=== PATIENT | female | born 1940 | race Caucasian/White ===

== ENCOUNTER 2017-03-18 12:14 | Inpatient (IN) | payer MEDICARE, BC, SELFPAY ==
[2017-03-18 12:20] VITALS: BP 154/80; PULSE 88; RESP 19; TEMP 36.4; O2SAT 95; BMI 26.4
[2017-03-18] MEDS: oxyCODONE 5 MG Tablet PO ×3 (14:05→23:48)
--- NOTE | 2017-03-18 14:08 | PCM.HP.COS ---
History of Present Illness Date of Admission: 03/18/17 Chief Complaint: Laminectomy The patient is a 77 year old right-handed female who was admitted to the rehab unit for rehabilitation after a Laminectomy on 03/14/17 at [facility] by Dr. Oscar Rosas, Surgery was uncomplicated. She has a history of Lumbar spondylolisthesis, spinal stenosis, HTN, HLD, GERD, Hiatal hernia, Arthritis, and Osteopenia. This was an elective surgery, the patient has had increasing amount of pain, over the last few months, difficulty sleeping 2/2 pain and stress incontinence and shortness of breath when ambulate because of the jarring causing pain. She lives with her in a two story house. the second floor is not completed, and they live on the first floor, they have 1 step to get into the house from the garage and 2 steps to get in through the front door. She was previously completely functionally independent and is admitted to the rehab unit in order to restore her previous level of functional independence. Was on a baby ASA prior to the surgery, and has been using a cane to ambulate the last few months. Past Medical History Allergies ciprofloxacin [From Cipro] Allergy (Verified 01/09/17 14:22) Unknown ciprofloxacin HCl [From Cipro] Allergy (Verified 01/09/17 14:22) Unknown codeine Adverse Reaction (Verified 01/09/17 14:22) Other Home Medications: Ambulatory Orders Medication Instructions Recorded Alendronate Sodium [Fosamax] 70 mg PO QWEEK 01/09/17 Atenolol 50 mg PO DAILY 01/09/17 Calcium Carbonate/Vitamin D3 1 each PO DAILY 01/09/17 [Calcium 600-Vit D3 200 Tablet] Lisinopril [Zestril] 10 mg PO DAILY 01/09/17 Lovastatin [Mevacor] 40 mg PO DAILY 01/09/17 Omeprazole 40 mg PO DAILY 01/09/17 Vit A/Vit C/Vit E/Zinc/Copper 1 each PO DAILY 01/09/17 [Preservision Areds Softgel] Cholecalciferol (VIT D3) [Vitamin 1,000 unit PO BID 03/18/17 D] Naloxegol Oxalate [Movantik] 25 mg PO QODAY 03/18/17 Oxycodone [Oxyir] 5 mg PO Q6H PRN PRN 03/18/17 Surgical History: total knee arthroplasty - Left knee, - - Tubal Ligation Psychiatric History: No pertinent psych hx 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 Lives: Spouse/ Significant Other Smoking Status: Never smoker Tobacco Use: Non-smoker Alcohol: Occasional Drugs: None Review of Systems Constitutional: Denies: Chills, Fever, Weight Change HEENT: Denies: Head Aches, Sinus Congestion, Sinus Drainage Cardiovascular: Denies: Chest Pain, Palpitations Respiratory: Denies: Cough, Shortness of breath at rest, Sputum production Gastrointestinal: Denies: Abdominal Pain, Nausea, Vomiting Genitourinary: Denies: Dysuria Musculoskeletal: Denies: Joint Pain, Joint Tenderness Skin: Denies: Rash, Wounds Neurological: Denies: Numbness, Tingling, Focal weakness Psychiatric: Denies: Anxiety, Depression, Homicidal Ideations, Suicidal Ideations Hematologic/ Lymphatic: Denies: Easy Bruising, Easy Bleeding VTE Information - Inpt Only VTE Present on Admission: No VTE Mechan Device Prophylaxis: SCD's VTE Pharm Prophylaxis ordered?: Yes Patient Problems: Active and Suspected Problems Hyperlipidemia (Acute) Back pain (Acute) Essential hypertension, benign (Acute) S/P laminectomy (Acute) - Physical Exam General: Alert, Oriented x3, Cooperative HEENT: Atraumatic, PERRLA, EOMI, Normocephalic Neck: Supple, No JVD, Negative Carotid Bruits Lungs: Clear to auscultation, Normal air movement Cardiovascular: Regular rate, No murmurs Abdomen: Bowel Sounds Present, Soft, Non Tender Extremities: No edema, Capillary Refill Less than 3 Seconds Skin: No rashes, No breakdown Musculoskeletal: No Tenderness to Palpation of Joints or Extremities Neurological: Cranial nerves II-XII grossly intact Psych/Mental Status: Normal Affect, Appropriate Vital Signs Temp Pulse Resp BP Pulse Ox 97.5 F L 88 19 H 154/80 H 95 03/18/17 12:20 03/18/17 12:20 03/18/17 12:20 03/18/17 12:20 03/18/17 12:20 Oxygen Delivery Method Room Air Weight: 61.235 kg Body Mass Index (BMI) 26.4 Active Medications Alendronate Sodium (Fosamax) 70 mg PO QWEEK [facility] Atenolol (Tenormin (Beta Kailee)) 50 mg PO DAILY [facility] Atorvastatin Calcium (Lipitor) 10 mg PO DAILY@2200 [facility] Bisacodyl (Dulcolax) 10 mg RECTAL .PRN X 1 PRN PRN Reason: Constipation Calcium/Vitamin D (Os-[place] 500mg + D) 1 tablet PO DAILYCM [facility] Cholecalciferol (Vitamin D) 1,000 unit PO BIDCM [facility] Lisinopril (Zestril) 10 mg PO DAILY [facility] Magnesium Hydroxide (Milk Of Magnesia) 30 ml PO .PRN X 1 PRN PRN Reason: Constipation Multivitamins/Minerals (Ocuvite) 1 tablet PO DAILYCM [facility] Non-Formulary Medication (Naloxegol Oxalate) 25 mg PO QODAY [facility] Oxycodone HCl (Oxyir) 5 mg PO Q4H PRN PRN PRN Reason: MODERATE PAIN (4-5/10) Last Admin: 03/18/17 14:05 Dose: 5 mg Pantoprazole Sodium (Protonix) 40 mg PO DAILY [facility] Polyethylene Glycol (Miralax) 17 gm PO DAILY [facility] Senna/Docusate Sodium (Senokot-S, Hillary-Colace) 2 tablet PO BID [facility] Assessment/Plan Active and Suspected Problems Hyperlipidemia (Acute) Back pain (Acute) Essential hypertension, benign (Acute) S/P laminectomy (Acute) Debility status post laminectomy bone graft lumbar spine. Goal of rehab is religion of prior level of functional independence. Plan: - Physical therapy for gait and balance - Occupational Therapy for ADLs - As needed analgesics - Bowel protocol - DVT prophylaxis: - HLD - continue home dose of statin - HTN - stable => continue home medications - Weight bearing status => WBAT, Lumbar brace on at all time when out of bed - Constipation - Miralax BID, and MOM in addition to Bowel regimen - Pre diabetes -> diet controlled, check fasting BS x 3days.
--- NOTE | 2017-03-18 14:11 | NURSING ---
Patient and aware of patient needing to use the call cha for all assistance and that she is fall risk and verbalized understanding.
--- NOTE | 2017-03-18 14:26 | HP.PCM.COS_ITS ---
History of Present Illness Date of Admission: 03/18/17 Chief Complaint: Laminectomy The patient is a 77 year old right-handed female who was admitted to the rehab unit for rehabilitation after a Laminectomy on 03/14/[address] [facility] by Dr. Oscar Rosas, Surgery was uncomplicated. She has a history of Lumbar spondylolisthesis, spinal stenosis, HTN, HLD, GERD, Hiatal hernia, Arthritis, and Osteopenia. This was an elective surgery, the patient has had increasing amount of pain, over the last few months, difficulty sleeping 2/2 pain and stress incontinence and shortness of breath when ambulate because of the jarring causing pain. She lives with her in a two story house. the second floor is not completed, and they live on the first floor, they have 1 step to get into the house from the garage and 2 steps to get in through the front door. She was previously completely functionally independent and is admitted to the rehab unit in order to restore her previous level of functional independence. Was on a baby ASA prior to the surgery, and has been using a cane to ambulate the last few months. Past Medical History Allergies ciprofloxacin [From Cipro] Allergy (Verified 01/09/17 14:22) Unknown ciprofloxacin HCl [From Cipro] Allergy (Verified 01/09/17 14:22) Unknown codeine Adverse Reaction (Verified 01/09/17 14:22) Other Home Medications: Ambulatory Orders Medication Instructions Recorded Alendronate Sodium [Fosamax] 70 mg PO QWEEK 01/09/17 Atenolol 50 mg PO DAILY 01/09/17 Calcium Carbonate/Vitamin D3 1 each PO DAILY 01/09/17 [Calcium 600-Vit D3 200 Tablet] Lisinopril [Zestril] 10 mg PO DAILY 01/09/17 Lovastatin [Mevacor] 40 mg PO DAILY 01/09/17 Omeprazole 40 mg PO DAILY 01/09/17 Vit A/Vit C/Vit E/Zinc/Copper 1 each PO DAILY 01/09/17 [Preservision Areds Softgel] Cholecalciferol (VIT D3) [Vitamin 1,000 unit PO BID 03/18/17 D] Naloxegol Oxalate [Movantik] 25 mg PO QODAY 03/18/17 Oxycodone [Oxyir] 5 mg PO Q6H PRN PRN 03/18/17 Surgical History: total knee arthroplasty - Left knee, - - Tubal Ligation Psychiatric History: No pertinent psych 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 Lives: Spouse/ Significant Other Smoking Status: Never smoker Tobacco Use: Non-smoker Alcohol: Occasional Drugs: None Review of Systems Constitutional: Denies: Chills, Fever, Weight Change HEENT: Denies: Head Aches, Sinus Congestion, Sinus Drainage Cardiovascular: Denies: Chest Pain, Palpitations Respiratory: Denies: Cough, Shortness of breath at rest, Sputum production Gastrointestinal: Denies: Abdominal Pain, Nausea, Vomiting Genitourinary: Denies: Dysuria Musculoskeletal: Denies: Joint Pain, Joint Tenderness Skin: Denies: Rash, Wounds Neurological: Denies: Numbness, Tingling, Focal weakness Psychiatric: Denies: Anxiety, Depression, Homicidal Ideations, Suicidal Ideations Hematologic/ Lymphatic: Denies: Easy Bruising, Easy Bleeding VTE Information - Inpt Only VTE Present on Admission: No VTE Mechan Device Prophylaxis: SCD's VTE Pharm Prophylaxis ordered?: Yes Patient Problems: Active and Suspected Problems Hyperlipidemia (Acute) Back pain (Acute) Essential hypertension, benign (Acute) S/P laminectomy (Acute) - Physical Exam General: Alert, Oriented x3, Cooperative HEENT: Atraumatic, PERRLA, EOMI, Normocephalic Neck: Supple, No JVD, Negative Carotid Bruits Lungs: Clear to auscultation, Normal air movement Cardiovascular: Regular rate, No murmurs Abdomen: Bowel Sounds Present, Soft, Non Tender Extremities: No edema, Capillary Refill Less than 3 Seconds Skin: No rashes, No breakdown Musculoskeletal: No Tenderness to Palpation of Joints or Extremities Neurological: Cranial nerves II-XII grossly intact Psych/Mental Status: Normal Affect, Appropriate Vital Signs Temp Pulse Resp BP Pulse Ox 97.5 F L 88 19 H 154/80 H 95 03/18/17 12:20 03/18/17 12:20 03/18/17 12:20 03/18/17 12:20 03/18/17 12:20 Oxygen Delivery Method Room Air Weight: 61.235 kg Body Mass Index (BMI) 26.4 Active Medications Alendronate Sodium (Fosamax) 70 mg PO QWEEK [facility]ASE Atenolol (Tenormin (Beta Kailee)) 50 mg PO DAILY [facility] Atorvastatin Calcium (Lipitor) 10 mg PO DAILY@2200 [facility] Bisacodyl (Dulcolax) 10 mg RECTAL .PRN X 1 PRN PRN Reason: Constipation Calcium/Vitamin D (Os-[place] 500mg + D) 1 tablet PO DAILYCM [facility] Cholecalciferol (Vitamin D) 1,000 unit PO BIDCM [facility] Lisinopril (Zestril) 10 mg PO DAILY [facility] Magnesium Hydroxide (Milk Of Magnesia) 30 ml PO .PRN X 1 PRN PRN Reason: Constipation Multivitamins/Minerals (Ocuvite) 1 tablet PO DAILYCM [facility] Non-Formulary Medication (Naloxegol Oxalate) 25 mg PO QODAY [facility] Oxycodone HCl (Oxyir) 5 mg PO Q4H PRN PRN PRN Reason: MODERATE PAIN (4-5/10) Last Admin: 03/18/17 14:05 Dose: 5 mg Pantoprazole Sodium (Protonix) 40 mg PO DAILY [facility] Polyethylene Glycol (Miralax) 17 gm PO DAILY [facility] Senna/Docusate Sodium (Senokot-S, Hillary-Colace) 2 tablet PO BID [facility] Assessment/Plan Active and Suspected Problems Hyperlipidemia (Acute) Back pain (Acute) Essential hypertension, benign (Acute) S/P laminectomy (Acute) Debility status post laminectomy bone graft lumbar spine. Goal of rehab is worship of prior level of functional independence. Plan: - Physical therapy for gait and balance - Occupational Therapy for ADLs - As needed analgesics - Bowel protocol - DVT prophylaxis: - HLD - continue home dose of statin - HTN - stable => continue home medications - Weight bearing status => WBAT, Lumbar brace on at all time when out of bed - Constipation - Miralax BID, and MOM in addition to Bowel regimen - Pre diabetes -> diet controlled, check fasting BS x 3days.
--- NOTE | 2017-03-18 14:55 | PCM.PROGNOTE ---
Patient Problems: Active and Suspected Problems S/P laminectomy (Acute) Essential hypertension, benign (Acute) Back pain (Acute) Hyperlipidemia (Acute) Subjective: Patient is a 77 years old female who was admitted to on 03/18/17 after she had laminectomy of lumbar spine on 03/14/16 at [facility] by Dr. Dr. Oscar Rosas. She was admitted to to continue rehabilitation. She is complaining of persisting pain in the lumbar area with reasonable pain control with current regimen so far. She is also having constipation, has not had bowel movements since the time of surgery. - Physical Exam General: Alert, Oriented x3, Cooperative HEENT: Atraumatic, PERRLA, EOMI, Normocephalic Oral: Moist Mucosa, No Gingival or Mucosal Lesions/ Ulcerations Neck: Supple, No JVD Lungs: Clear to auscultation, Normal air movement, No rhonchi, No wheeze, No rales Cardiovascular: Regular rate, Regular Rhythm, Normal S1, Normal S2, No murmurs Abdomen: Bowel Sounds Present, Soft, Non Tender, Non-Distended, No Hepato-splenomegaly Extremities: No clubbing, No cyanosis, No edema Skin: No rashes, No breakdown Musculoskeletal: No Tenderness to Palpation of Joints or Extremities, No Muscle Wasting Lymphatic: No Cervical, Supraclavicular, or Inguinal Adenopathy Neurological: Cranial nerves II-XII grossly intact, Sensory exam intact to light touch and pain Psych/Mental Status: Normal Affect, Appropriate, Anxious Vital Signs Temp Pulse Resp BP Pulse Ox 97.5 F L 88 19 H 154/80 H 95 03/18/17 12:20 03/18/17 12:20 03/18/17 12:20 03/18/17 12:20 03/18/17 12:20 Oxygen Delivery Method Room Air Weight: 135 lb Body Mass Index (BMI) 26.4 Active Medications Alendronate Sodium (Fosamax) 70 mg PO QWEEK [facility] Atenolol (Tenormin (Beta Kailee)) 50 mg PO DAILY [facility] Atorvastatin Calcium (Lipitor) 10 mg PO DAILY@2200 [facility] Bisacodyl (Dulcolax) 10 mg RECTAL .PRN X 1 PRN PRN Reason: Constipation Calcium/Vitamin D (Os-[place] 500mg + D) 1 tablet PO DAILYCM [facility] Cholecalciferol ([facility]itamin D) [facility] Lisinopril (Zestril) 10 mg PO DAILY [facility] Magnesium Hydroxide (Milk Of Magnesia) 30 ml PO .PRN X 1 PRN PRN Reason: Constipation Multivitamins/Minerals (Ocuvite) 1 tablet PO DAILYCM [facility] Non-Formulary Medication (Naloxegol Oxalate) 25 mg PO QODAY [facility] Oxycodone HCl (Oxyir) 5 mg PO Q4H PRN PRN PRN Reason: MODERATE PAIN (4-5/10) Last Admin: 03/18/17 14:05 Dose: 5 mg Pantoprazole Sodium (Protonix) 40 mg PO DAILY [facility] Polyethylene Glycol (Miralax) 17 gm PO DAILY [facility] Senna/Docusate Sodium (Senokot-S, Hillary-Colace) 2 tablet PO BID [facility] Assessment/Plan Active and Suspected Problems S/P laminectomy (Acute) Essential hypertension, benign (Acute) Back pain (Acute) Hyperlipidemia (Acute) Patient is a 77 years old female who was admitted to on 03/18/17 after she had laminectomy of lumbar spine on 03/14/16 at [facility] by Dr. Dr. Oscar Rosas. She was admitted to to continue rehabilitation. She is complaining of persisting pain in the lumbar area with reasonable pain control with current regimen so far. She is also having constipation, has not had bowel movements since the time of surgery. #1 S/P laminectomy bone graft lumbar spine. Surgery was on 03/14/16. Continue rehab. #2 Essential hypertension. Blood pressure is adequate. Continue current medications. #3 Hyperlipidemia. #4 Constipation. Continue current regimen with prn laxative. Code Visit Inpatient E&M: 48616 Subs Hosp L2
--- NOTE | 2017-03-18 15:02 | PN_ITS ---
Patient Problems: Active and Suspected Problems S/P laminectomy (Acute) Essential hypertension, benign (Acute) Back pain (Acute) Hyperlipidemia (Acute) Subjective: Patient is a 77 years old female who was admitted to on 03/18/17 after she had laminectomy of lumbar spine on 03/14/16 at [facility] by Dr. Dr. Oscar Rosas. She was admitted to to continue rehabilitation. She is complaining of persisting pain in the lumbar area with reasonable pain control with current regimen so far. She is also having constipation, has not had bowel movements since the time of surgery. - Physical Exam General: Alert, Oriented x3, Cooperative HEENT: Atraumatic, PERRLA, EOMI, Normocephalic Oral: Moist Mucosa, No Gingival or Mucosal Lesions/ Ulcerations Neck: Supple, No JVD Lungs: Clear to auscultation, Normal air movement, No rhonchi, No wheeze, No rales Cardiovascular: Regular rate, Regular Rhythm, Normal S1, Normal S2, No murmurs Abdomen: Bowel Sounds Present, Soft, Non Tender, Non-Distended, No Hepato- splenomegaly Extremities: No clubbing, No cyanosis, No edema Skin: No rashes, No breakdown Musculoskeletal: No Tenderness to Palpation of Joints or Extremities, No Muscle Wasting Lymphatic: No Cervical, Supraclavicular, or Inguinal Adenopathy Neurological: Cranial nerves II-XII grossly intact, Sensory exam intact to light touch and pain Psych/Mental Status: Normal Affect, Appropriate, Anxious Vital Signs Temp Pulse Resp BP Pulse Ox 97.5 F L 88 19 H 154/80 H 95 03/18/17 12:20 03/18/17 12:20 03/18/17 12:20 03/18/17 12:20 03/18/17 12:20 Oxygen Delivery Method Room Air Weight: 135 lb Body Mass Index (BMI) 26.4 Active Medications Alendronate Sodium (Fosamax) 70 mg PO QWEEK [facility] Atenolol (Tenormin (Beta Kailee)) 50 mg PO DAILY [facility] Atorvastatin Calcium (Lipitor) 10 mg PO DAILY@2200 [facility] Bisacodyl (Dulcolax) 10 mg RECTAL .PRN X 1 PRN PRN Reason: Constipation Calcium/Vitamin D (Os-[place] 500mg + D) 1 tablet PO DAILYCM [facility] Cholecalciferol (Vitamin D) [facility] Lisinopril (Zestril) 10 mg PO DAILY [facility] Magnesium Hydroxide (Milk Of Magnesia) 30 ml PO .PRN X 1 PRN PRN Reason: Constipation Multivitamins/Minerals (Ocuvite) 1 tablet PO DAILYCM [facility] Non-Formulary Medication (Naloxegol Oxalate) 25 mg PO QODAY [facility] Oxycodone HCl (Oxyir) 5 mg PO Q4H PRN PRN PRN Reason: MODERATE PAIN (4-5/10) Last Admin: 03/18/17 14:05 Dose: 5 mg Pantoprazole Sodium (Protonix) 40 mg PO DAILY [facility] Polyethylene Glycol (Miralax) 17 gm PO DAILY [facility] Senna/Docusate Sodium (Senokot-S, Hillary-Colace) 2 tablet PO BID [facility] Assessment/Plan Active and Suspected Problems S/P laminectomy (Acute) Essential hypertension, benign (Acute) Back pain (Acute) Hyperlipidemia (Acute) Patient is a 77 years old female who was admitted to on 03/18/17 after she had laminectomy of lumbar spine on 03/14/16 at [facility] by Dr. Dr. Oscar Rosas. She was admitted to to continue rehabilitation. She is complaining of persisting pain in the lumbar area with reasonable pain control with current regimen so far. She is also having constipation, has not had bowel movements since the time of surgery. #1 S/P laminectomy bone graft lumbar spine. Surgery was on 03/14/16. Continue rehab. #2 Essential hypertension. Blood pressure is adequate. Continue current medications. #3 Hyperlipidemia. #4 Constipation. Continue current regimen with prn laxative. Code Visit Inpatient E&M: 57793 Subs Hosp L2
[2017-03-18 15:15] VITALS: O2SAT 95
--- NOTE | 2017-03-18 16:20 | PCM.RU.PYE ---
Admission Information Status Changes from Prescreening?: No changes Identified Actual Problem List:: Falls, Mobility Impaired, Self Care Deficit, BP, Hypertension Potential Problem List:: DVT, Bleeding, Infection, UTI, Aspiration, Falls, Skin Integrity, Depression Risk of Complications DVT: LMWH, NOREEN Hose, Sequential Compression Device Bleeding: Monitor Lab Values, Nursing to Teach Precautions for anti-coagulation therapy., Wound, if applicable, to be assessed every shift., Stroke patients assessed for lethargy or change in status. Infection: Clinical Staff to Monitor for S/S of infection:, S/S of infection include fever, redness, warmth, etc. Urinary Tract Infection: Monitor for frequency, burning, discomfort, or incontinence., Nursing will obtain urine sample for urinalysis and C&S when ordered. Aspiration: Clinical staff will monitor for coughing, drooling, congestion., Speech will evaluate swallowing and dsyphasia., Nursing will monitor patient swallowing during meals. Falls: Patient will be evaluated for Fall Precautions, Patient will be placed on Fall Precautions as indicated per protocol. Skin Breakdown: Nursing will assess skin daily using assessment tool., Nursing will place on Skin Breakdown Precautions as indicated. Pain: Clinical staff will assess patient's pain level per protocol., Medications will be given, if needed, and the pain level reassessed., Other methods: Massage, distraction, decrease stimulus, etc. used PRN. Plan of Care Patient requires physician specializing in physical medicine and rehab oversight to provide close medical supervision of rehab issues including: Pain Management, Sleep Problems, Bowel and Bladder, Medical and co-morbidity Management, DVT prophylaxis, Rehabilitation Leadership, Coordination of treatment team Patient needs Physical Therapy: For a minimum of 1 hour, At least 5 out of 7 days Patient needs Physical Therapy to improve:: Mobility, Mobility, Mobility, Strengthening, Transfers, Stretching, ROM, Endurance, Stairs, Gait, Balance Patient needs Occupational Therapy: For a minimum of 1 hour, At least 5 out of 7 days Patient needs Occupational Therapy to improve ADL's incl.: Eating, Grooming, Bathing, Dressing, Toileting, Toilet transfers, Community Reintegration, Higher functioning activities, Household tasks, Adaptive Equipment, Splinting, Other activities as determined Patient requires 24/ Rehabilitation Nursing for: Pain Issues, Identifying and preventing risk factors, Monitoring and reporting current medical conditions, Assisting with ambulation, transfer, and all ADL's, Teaching patients about disease process and medications, Family teaching, Providing safe environment, Bowel and Bladder Issues, Skin integrity, Medication Management Patient needs Multiple Needle Stitcher/ Case Management for: Discharge Planning, Arranging Home Equipment or Services, Family Interventions Patient needs Dietary and Nutrition Services for: Adequate Nutrition, Nutritional Supplements, Nutritional Education Goals Patient will remain: free from falls, or injury at time of discharge. Patient will perform bed mobility at: MOD I level of assist. Patient will complete transfers from bed to chair at: MOD I level of assist. Patient will ambulate: 100 feet, with MOD I assist, with LRD Patient will complete upper body dressing at: MOD I level of assist. Patient will complete lower body dressing at: MOD I level of assist. Patient will complete toileting at: MOD I level of assist. Patient will perform bathing at: MOD I level of assist. Patient will complete grooming at: MOD I level of assist. Patient will complete home management skills at: MOD I level of assist. Patient will achieve: 12 stairs, at MOD I assist Patient will have pain level of: of 3 or less Patient's skin will: remain intact, free from infection. Patient will receive: adequate nutrition. Discharge Planning Pt Prognosis for Sig. Practical Improv. w/in Reasonable Time: Good - 1 Estimated Length of stay (days): 14 Anticipated D/C Destination: Home Was Preadmission Assessment Accurate?: Yes
[2017-03-18] MEDS: Polyethylene Glycol 3350 17 GM PACKET PO (17:31)
[2017-03-18 19:34] VITALS: BP 125/60; PULSE 88; RESP 16; TEMP 36.8; O2SAT 95
[2017-03-18] MEDS: Senna/Docusate Sodium 1 Tablet 2 TABLET PO (22:47)
[2017-03-18] MEDS: Magnesium Hydroxide 30 ML UDC PO (22:48)
[2017-03-18] MEDS: Atorvastatin Calcium 10 MG Tablet PO (22:48)
[2017-03-19] MEDS: oxyCODONE 5 MG Tablet PO ×4 (03:56→21:06)
[2017-03-19 07:56] LABS: Hematocrit 31.5 % (37-47); Hemoglobin 10.3 g/dl (12.0-15.0); Mean Corp Hgb Conc 32.7 g/gl (32-36); Mean Corpuscular Hgb 30.2 pg (27.0-32.0); Mean Corpuscular Volume 92.4 fL (81-99); Mean Platelet Vol. 9.6 fl (6.2-12.0); Platelet Count 232 K/mm3 (150-450); RBC Distribution Width CV 12.1 % (11.6-14.6); RBC Distribution Width SD 39.3 fl (35.1-43.9); Red Blood Count 3.41 M/mm3 (4.2-5.4)
[2017-03-19 07:59] LABS: Scan Indicated on CBC? Y/N NO
[2017-03-19] MEDS: Calcium Carb/Vitamin D 1 TABLET Tablet PO (08:03)
[2017-03-19] MEDS: Polyethylene Glycol 3350 17 GM PACKET PO (08:03)
[2017-03-19] MEDS: Senna/Docusate Sodium 1 Tablet 2 TABLET PO ×2 (08:03→20:51)
[2017-03-19] MEDS: Pantoprazole Sodium 40 MG Tablet PO (08:03)
[2017-03-19 08:10] LABS: Anion Gap 10 (5-15); BUN 23 mg/dL (7-18); BUN/Creat Ratio 30.1 RATIO (10-20); Calcium,Total 10.1 mg/dL (8.5-10.1); Chloride 103 mmol/L (98-107); Creatinine, Serum 0.76 mg/dL (0.55-1.02); EST Glomerular Filtration Rate 78 mL/min (>60); Est Glom Filt Rate - Afr Amer 95 mL/min (>60); Estimated Creatinine Clearance 33.84 ml/min; Glucose 140 mg/dL (70-110); Magnesium 2.1 mg/dL (1.6-2.6); Phosphorus 1.5 mg/dL (2.5-4.9); Potassium 4.3 mmol/L (3.5-5.1); Sodium Level 138 mmol/L (136-145)
[2017-03-19] MEDS: Lisinopril 10 MG Tablet PO (09:06)
[2017-03-19] MEDS: Atenolol 50 MG Tablet PO (09:06)
[2017-03-19 09:57] VITALS: BP 111/56; PULSE 71; RESP 16; TEMP 36.8; O2SAT 97
--- NOTE | 2017-03-19 10:12 | PCM.PN.NEU ---
Patient Problems: Active and Suspected Problems Hyperlipidemia (Acute) Back pain (Acute) Essential hypertension, benign (Acute) S/P laminectomy (Acute) Subjective: Patient seen and examined. Continues to have persistent Post-op pain, started on low dose Fentanyl patch. Tolerating therapy. Denies any shortness of breath or chest pains. - Physical Exam General: Alert, Oriented x3, Cooperative HEENT: Atraumatic, PERRLA, EOMI, Normocephalic Neck: Supple, No JVD, Negative Carotid Bruits Lungs: Clear to auscultation, Normal air movement Cardiovascular: Regular rate, No murmurs Abdomen: Bowel Sounds Present, Soft, Non Tender Extremities: No edema, Capillary Refill Less than 3 Seconds Skin: No rashes, No breakdown Musculoskeletal: No Tenderness to Palpation of Joints or Extremities Neurological: Cranial nerves II-XII grossly intact Psych/Mental Status: Normal Affect, Appropriate Vital Signs Temp Pulse Resp BP Pulse Ox 98.3 F 71 16 111/56 L 97 03/19/17 09:57 03/19/17 09:57 03/19/17 09:57 03/19/17 09:57 03/19/17 09:57 Oxygen Delivery Method Room Air Weight: 61.235 kg Body Mass Index (BMI) 26.4 Intake and Output for Last 24 Hours 03/17/17 03/18/17 03/19/17 23:59 23:59 23:59 Intake Total 120 / 120 120 / 120 Output Total 825 / 825 350 / 350 Balance -705 / -705 -230 / -230 Laboratory Tests Past 24 Hrs 03/19/17 03/19/17 07:45 07:45 WBC 8.0 RBC 3.41 L Hgb 10.3 L Hct 31.5 L MCV 92.4 MCH 30.2 MCHC 32.7 RDW 12.1 RDW Differential 39.3 Plt Count 232 MPV 9.6 Sodium 138 Potassium 4.3 Chloride 103 Carbon Dioxide 25.0 Anion Gap 10 BUN 23 H Creatinine 0.76 Estim Creat Clear Calc 33.84 Est GFR (MDRD) Af Amer 95 Est GFR (MDRD) Non-Af 78 BUN/Creatinine Ratio 30.1 H Glucose 140 H Calcium 10.1 Phosphorus 1.5 L Magnesium 2.1 Active Medications Alendronate Sodium (Fosamax) 70 mg PO QWEEK [facility] Atenolol (Tenormin (Beta Kailee)) 50 mg PO DAILY [facility] Last Admin: 03/19/17 09:06 Dose: 50 mg Atorvastatin Calcium (Lipitor) 10 mg PO DAILY@2200 [facility] Last Admin: 03/18/17 22:48 Dose: 10 mg Bisacodyl (Dulcolax) 10 mg RECTAL .PRN X 1 PRN PRN Reason: Constipation Calcium/Vitamin D (Os-[place] 500mg + D) [facility] Last Admin: 03/19/17 08:03 Dose: 1 tablet Cholecalciferol (Vitamin D) 1,[facility] Last Admin: 03/19/17 08:03 Dose: 1,000 unit Fentanyl (Duragesic) 12 mcg TRANSDERM. Q3D [facility] Gabapentin (Neurontin) 100 mg PO TIDCM [facility] Lisinopril (Zestril) 10 mg PO DAILY [facility] Last Admin: 03/19/17 09:06 Dose: 10 mg Magnesium Hydroxide (Milk Of Magnesia) 30 ml PO .PRN X 1 PRN PRN Reason: Constipation Last Admin: 03/18/17 22:48 Dose: 30 ml Multivitamins/Minerals (Ocuvite) [facility] Last Admin: 03/19/17 08:03 Dose: 1 tablet Ondansetron HCl (Zofran Odt) 4 mg PO Q6H PRN PRN PRN Reason: NAUSEA/VOMITING Oxycodone HCl (Oxyir) 5 mg PO Q4H PRN PRN PRN Reason: MODERATE PAIN (4-5/10) Last Admin: 03/19/17 09:07 Dose: 5 mg Pantoprazole Sodium (Protonix) 40 mg PO DAILY [facility] Last Admin: 03/19/17 08:03 Dose: 40 mg Polyethylene Glycol (Miralax) 17 gm PO DAILY [facility] Last Admin: 03/19/17 08:03 Dose: 17 gm Senna/Docusate Sodium (Senokot-S, Hillary-Colace) 2 tablet PO BID [facility] Last Admin: 03/19/17 08:03 Dose: 2 tablet Assessment/Plan Active and Suspected Problems Hyperlipidemia (Acute) Back pain (Acute) Essential hypertension, benign (Acute) S/P laminectomy (Acute) Debility status post laminectomy bone graft lumbar spine. Goal of rehab is zoroastrianism of prior level of functional independence. Plan: - Physical therapy for gait and balance - Occupational Therapy for ADLs - As needed analgesics - Bowel protocol - DVT prophylaxis: - HLD - continue home dose of statin - HTN - stable => continue home medications - Weight bearing status => WBAT, Lumbar brace on at all time when out of bed - Constipation - Miralax BID, and MOM in addition to Bowel regimen - Pre diabetes -> diet controlled, check fasting BS x 3days. - Pst op pain - persistent pain will start patient on a low dose Fentanyl patch 12.5mcq/24hrs
--- NOTE | 2017-03-19 10:17 | PN.NEURO_ITS ---
Patient Problems: Active and Suspected Problems Hyperlipidemia (Acute) Back pain (Acute) Essential hypertension, benign (Acute) S/P laminectomy (Acute) Subjective: Patient seen and examined. Continues to have persistent Post-op pain, started on low dose Fentanyl patch. Tolerating therapy. Denies any shortness of breath or chest pains. - Physical Exam General: Alert, Oriented x3, Cooperative HEENT: Atraumatic, PERRLA, EOMI, Normocephalic Neck: Supple, No JVD, Negative Carotid Bruits Lungs: Clear to auscultation, Normal air movement Cardiovascular: Regular rate, No murmurs Abdomen: Bowel Sounds Present, Soft, Non Tender Extremities: No edema, Capillary Refill Less than 3 Seconds Skin: No rashes, No breakdown Musculoskeletal: No Tenderness to Palpation of Joints or Extremities Neurological: Cranial nerves II-XII grossly intact Psych/Mental Status: Normal Affect, Appropriate Vital Signs Temp Pulse Resp BP Pulse Ox 98.3 F 71 16 111/56 L 97 03/19/17 09:57 03/19/17 09:57 03/19/17 09:57 03/19/17 09:57 03/19/17 09:57 Oxygen Delivery Method Room Air Weight: 61.235 kg Body Mass Index (BMI) 26.4 Intake and Output for Last 24 Hours 03/17/17 03/18/17 03/19/17 23:59 23:59 23:59 Intake Total 120 / 120 120 / 120 Output Total 825 / 825 350 / 350 Balance -705 / -705 -230 / -230 Laboratory Tests Past 24 Hrs 03/19/17 03/19/17 07:45 07:45 WBC 8.0 RBC 3.41 L Hgb 10.3 L Hct 31.5 L MCV 92.4 MCH 30.2 MCHC 32.7 RDW 12.1 RDW Differential 39.3 Plt Count 232 MPV 9.6 Sodium 138 Potassium 4.3 Chloride 103 Carbon Dioxide 25.0 Anion Gap 10 BUN 23 H Creatinine 0.76 Estim Creat Clear Calc 33.84 Est GFR (MDRD) Af Amer 95 Est GFR (MDRD) Non-Af 78 BUN/Creatinine Ratio 30.1 H Glucose 140 H Calcium 10.1 Phosphorus 1.5 L Magnesium 2.1 Active Medications Alendronate Sodium (Fosamax) 70 mg PO QWEEK CHASE Atenolol (Tenormin (Beta Kailee)) 50 mg PO DAILY [facility] Last Admin: 03/19/17 09:06 Dose: 50 mg Atorvastatin Calcium (Lipitor) 10 mg PO DAILY@2200 [facility] Last Admin: 03/18/17 22:48 Dose: 10 mg Bisacodyl (Dulcolax) 10 mg RECTAL .PRN X 1 PRN PRN Reason: Constipation Calcium/Vitamin D (Os-[place] 500mg + D) [facility] Last Admin: 03/19/17 08:03 Dose: 1 tablet Cholecalciferol (Vitamin D) [facility] Last Admin: 03/19/17 08:03 Dose: 1,000 unit Fentanyl (Duragesic) 12 mcg TRANSDERM. Q3D [facility] Gabapentin (Neurontin) 100 mg PO TIDCM [facility] Lisinopril (Zestril) 10 mg PO DAILY [facility] Last Admin: 03/19/17 09:06 Dose: 10 mg Magnesium Hydroxide (Milk Of Magnesia) 30 ml PO .PRN X 1 PRN PRN Reason: Constipation Last Admin: 03/18/17 22:48 Dose: 30 ml Multivitamins/Minerals (Ocuvite) [facility] Last Admin: 03/19/17 08:03 Dose: 1 tablet Ondansetron HCl (Zofran Odt) 4 mg PO Q6H PRN PRN PRN Reason: NAUSEA/VOMITING Oxycodone HCl (Oxyir) 5 mg PO Q4H PRN PRN PRN Reason: MODERATE PAIN (4-5/10) Last Admin: 03/19/17 09:07 Dose: 5 mg Pantoprazole Sodium (Protonix) 40 mg PO DAILY [facility] Last Admin: 03/19/17 08:03 Dose: 40 mg Polyethylene Glycol (Miralax) 17 gm PO DAILY [facility] Last Admin: 03/19/17 08:03 Dose: 17 gm Senna/Docusate Sodium (Senokot-S, Hillary-Colace) 2 tablet PO BID [facility] Last Admin: 03/19/17 08:03 Dose: 2 tablet Assessment/Plan Active and Suspected Problems Hyperlipidemia (Acute) Back pain (Acute) Essential hypertension, benign (Acute) S/P laminectomy (Acute) Debility status post laminectomy bone graft lumbar spine. Goal of rehab is church of prior level of functional independence. Plan: - Physical therapy for gait and balance - Occupational Therapy for ADLs - As needed analgesics - Bowel protocol - DVT prophylaxis: - HLD - continue home dose of statin - HTN - stable => continue home medications - Weight bearing status => WBAT, Lumbar brace on at all time when out of bed - Constipation - Miralax BID, and MOM in addition to Bowel regimen - Pre diabetes -> diet controlled, check fasting BS x 3days. - Pst op pain - persistent pain will start patient on a low dose Fentanyl patch 12.5mcq/24hrs
[2017-03-19] MEDS: Gabapentin 100 MG Capsule PO ×2 (12:52→17:13)
--- NOTE | 2017-03-19 15:24 | CASEMGMT ---
Social Work Telephone call to patient spouse, Ventura. Voicemail left reminding Ventura of team meeting and giving Ventura this social workers contact information. Will continue to follow. Gisela DELA CRUZ, HEARING SPECIALIST
--- NOTE | 2017-03-19 16:20 | CHAPLAIN ---
Type of Pastoral Visit _x__ Initial Visit ___ Follow-up Visit ___ On-call Visit ___ General Patient Visit ___ Spiritual Assessment ___ Family Conference ___ Bereavement ___ Rapid Response ___ Code Blue ___ Other (describe below) Pastoral Care Referral From _x__ Patient ___ Family ___ Nurse ___ Physician ___ Geospatial Program Management Officer ___ Chief Mate ___ Other (describe below) Sacrament/Intervention _x__ Active listening ___ Anointing ___ Bahai ___ Bereavement ___ Communion ___ Massiel exploration ___ ___ Life review _x__ Prayer ___ Reconciliation ___ Sacrament of Sick _x__ Supportive presence ___ Wedding ___ Other (describe below) Pastoral Comments
[2017-03-19] MEDS: Bisacodyl 10 MG Suppository RECTAL (20:51)
[2017-03-19] MEDS: Atorvastatin Calcium 10 MG Tablet PO (20:51)
[2017-03-19 20:59] VITALS: BP 104/56; PULSE 87; RESP 12; TEMP 36.6; O2SAT 96
[2017-03-20] MEDS: oxyCODONE 5 MG Tablet PO ×3 (06:37→20:39)
[2017-03-20] MEDS: Calcium Carb/Vitamin D 1 TABLET Tablet PO (07:43)
[2017-03-20] MEDS: Gabapentin 100 MG Capsule PO ×3 (07:43→16:58)
[2017-03-20] MEDS: Senna/Docusate Sodium 1 Tablet 2 TABLET PO ×2 (07:44→20:40)
[2017-03-20 08:43] VITALS: BP 104/58; PULSE 83; RESP 17; TEMP 36.7; O2SAT 97
--- NOTE | 2017-03-20 09:44 | PCM.PN.NEU ---
Patient Problems: Active and Suspected Problems Hyperlipidemia (Acute) Back pain (Acute) Essential hypertension, benign (Acute) S/P laminectomy (Acute) Subjective: Patient seen and examined. Tolerating Therapy. Pain is better controlled since starting the Fentanyl patch will increase patch to 25 mcq/24 hrs, for better control. No issues with GI/. - Physical Exam General: Alert, Oriented x3, Cooperative HEENT: Atraumatic, PERRLA, EOMI, Normocephalic Neck: Supple, No JVD, Negative Carotid Bruits Lungs: Clear to auscultation, Normal air movement Cardiovascular: Regular rate, No murmurs Abdomen: Bowel Sounds Present, Soft, Non Tender Extremities: No edema, Capillary Refill Less than 3 Seconds Skin: No rashes, No breakdown Musculoskeletal: No Tenderness to Palpation of Joints or Extremities Neurological: Cranial nerves II-XII grossly intact Psych/Mental Status: Normal Affect, Appropriate Vital Signs Temp Pulse Resp BP Pulse Ox 98.0 F 83 17 104/58 L 97 03/20/17 08:43 03/20/17 08:43 03/20/17 08:43 03/20/17 08:43 03/20/17 08:43 Oxygen Delivery Method Room Air Weight: 61.235 kg Body Mass Index (BMI) 26.4 Intake and Output for Last 24 Hours 03/18/17 03/19/17 03/20/17 23:59 23:59 23:59 Intake Total 120 / 120 360 / 360 120 / 120 Output Total 825 / 825 350 / 350 Balance -705 / -705 10 / 10 120 / 120 Active Medications Alendronate Sodium (Fosamax) 70 mg PO QWEEK [facility] Atenolol (Tenormin (Beta Kailee)) 50 mg PO DAILY [facility] Last Admin: 03/19/17 09:06 Dose: 50 mg Atorvastatin Calcium (Lipitor) 10 mg PO DAILY@2200 [facility] Last Admin: 03/19/17 20:51 Dose: 10 mg Bisacodyl (Dulcolax) 10 mg RECTAL .PRN X 1 PRN PRN Reason: Constipation Last Admin: 03/19/17 20:51 Dose: 10 mg Calcium/Vitamin D (Os-[place] 500mg + D) [facility] Last Admin: 03/20/17 07:43 Dose: 1 tablet Cholecalciferol (Vitamin D) 1,000 unit PO BIDCM [facility] Last Admin: 03/20/17 07:42 Dose: 1,000 unit Fentanyl (Duragesic) 12 mcg TRANSDERM. Q3D [facility] Last Admin: 03/19/17 11:00 Dose: 12 mcg Gabapentin (Neurontin) 100 mg PO TIDCM [facility] Last Admin: 03/20/17 07:43 Dose: 100 mg Lisinopril (Zestril) 10 mg PO DAILY [facility] Last Admin: 03/19/17 09:06 Dose: 10 mg Magnesium Hydroxide (Milk Of Magnesia) 30 ml PO .PRN X 1 PRN PRN Reason: Constipation Last Admin: 03/18/17 22:48 Dose: 30 ml Multivitamins/Minerals (Ocuvite) [facility] Last Admin: 03/20/17 07:42 Dose: 1 tablet Nutritional Formula (Lactose Free) (Ensure Enlive) 120 ml PO 4X/DAY [facility] Last Admin: 03/19/17 20:51 Dose: 120 ml Ondansetron HCl (Zofran Odt) 4 mg PO Q6H PRN PRN PRN Reason: NAUSEA/VOMITING Oxycodone HCl (Oxyir) 5 mg PO Q4H PRN PRN PRN Reason: MODERATE PAIN (4-5/10) Last Admin: 03/20/17 06:37 Dose: 5 mg Pantoprazole Sodium (Protonix) 40 mg PO DAILY [facility] Last Admin: 03/19/17 08:03 Dose: 40 mg Polyethylene Glycol (Miralax) 17 gm PO DAILY [facility] Last Admin: 03/20/17 07:45 Dose: Not Given Senna/Docusate Sodium (Senokot-S, Hillary-Colace) 2 tablet PO BID [facility] Last Admin: 03/20/17 07:44 Dose: 2 tablet Assessment/Plan Active and Suspected Problems Hyperlipidemia (Acute) Back pain (Acute) Essential hypertension, benign (Acute) S/P laminectomy (Acute) Debility status post laminectomy bone graft lumbar spine. Goal of rehab is pentecostalism of prior level of functional independence. Plan: - Physical therapy for gait and balance - Occupational Therapy for ADLs - As needed analgesics - Bowel protocol - DVT prophylaxis: - HLD - continue home dose of statin - HTN - stable => continue home medications - Weight bearing status => WBAT, Lumbar brace on at all time when out of bed - Constipation - Miralax BID, and MOM in addition to Bowel regimen - Pre diabetes -> diet controlled, check fasting BS x 3days. - Pst op pain - persistent pain will start patient on a low dose Fentanyl patch 12.5mcq/24hrs => pain is better will increase patch to 25mcq/24 hrs. for better control.
[2017-03-20] MEDS: Atenolol 50 MG Tablet PO (09:50)
[2017-03-20] MEDS: Lisinopril 10 MG Tablet PO (09:50)
[2017-03-20] MEDS: Pantoprazole Sodium 40 MG Tablet PO (09:50)
[2017-03-20 14:43] VITALS: O2SAT 97
[2017-03-20] MEDS: fentaNYL 25 MCG Patch TRANSDERM. (14:53)
--- NOTE | 2017-03-20 16:50 | PCM.PN.HOSP ---
Patient Problems: Active and Suspected Problems Hyperlipidemia (Acute) Back pain (Acute) Essential hypertension, benign (Acute) S/P laminectomy (Acute) Subjective: Patient sitting in the chair. Patient walks with support to short distance Vitals/I&O's: Vital Signs Temp Pulse Resp BP Pulse Ox 98.0 F 83 17 104/58 L 97 03/20/17 08:43 03/20/17 08:43 03/20/17 08:43 03/20/17 08:43 03/20/17 14:43 Oxygen Delivery Method Room Air Weight: 135 lb 0.001 oz Body Mass Index (BMI) 26.4 Intake and Output for Last 24 Hours 03/18/17 03/19/17 03/20/17 23:59 23:59 23:59 Intake Total 120 / 120 360 / 360 120 / 120 Output Total 825 / 825 350 / 350 Balance -705 / -705 10 / 10 120 / 120 General: Alert, Oriented x3, Cooperative HEENT: Atraumatic, PERRLA, EOMI, Normocephalic Neck: Supple, No JVD, Negative Carotid Bruits Lungs: Clear to auscultation, Normal air movement, No rhonchi, No wheeze, No rales Cardiovascular: Regular rate, Regular Rhythm, Normal S1, Normal S2, No murmurs Abdomen: Bowel Sounds Present, Soft, Non Tender, Non-Distended Extremities: No edema, Capillary Refill Less than 3 Seconds Skin: No rashes, No breakdown Musculoskeletal: No Tenderness to Palpation of Joints or Extremities, - - Surgical dressing present over lumbar spine. No soakage Neurological: Cranial nerves II-XII grossly intact Psych/Mental Status: Normal Affect, Appropriate Current Medications Alendronate Sodium (Fosamax) 70 mg PO QWEEK [facility] Atenolol (Tenormin (Beta Kailee)) 50 mg PO DAILY [facility] Last Admin: 03/20/17 09:50 Dose: 50 mg Atorvastatin Calcium (Lipitor) 10 mg PO DAILY@2200 [facility] Last Admin: 03/19/17 20:51 Dose: 10 mg Bisacodyl (Dulcolax) 10 mg RECTAL .PRN X 1 PRN PRN Reason: Constipation Last Admin: 03/19/17 20:51 Dose: 10 mg Calcium/Vitamin D ([facility]-[place] 500[facility] + D) [facility] Last Admin: 03/20/17 07:43 Dose: 1 tablet Cholecalciferol ([facility]itamin D) [facility] Last Admin: 03/20/17 07:42 Dose: 1,000 unit Fentanyl (Duragesic) 25 mcg TRANSDERM. Q72H [facility] Last Admin: 03/20/17 14:53 Dose: 25 mcg Gabapentin (Neurontin) 100 mg PO TIDCM [facility] Last Admin: 03/20/17 11:20 Dose: 100 mg Lisinopril (Zestril) 10 mg PO DAILY [facility] Last Admin: 03/20/17 09:50 Dose: 10 mg Magnesium Hydroxide (Milk Of Magnesia) 30 ml PO .PRN X 1 PRN PRN Reason: Constipation Last Admin: 03/18/17 22:48 Dose: 30 ml Multivitamins[facility]Minerals ([facility]ite) [facility] Last Admin: 03/20/17 07:42 Dose: 1 tablet Nutritional Formula (Lactose Free) (Ensure Enlive) 120 ml PO 4X/DAY [facility] Last Admin: 03/20/17 14:52 Dose: 120 ml Ondansetron HCl (Zofran Odt) 4 mg PO Q6H PRN PRN PRN Reason: NAUSEA/VOMITING Oxycodone HCl (Oxyir) 5 mg PO Q4H PRN PRN PRN Reason: MODERATE PAIN (4-5/10) Last Admin: 03/20/17 11:21 Dose: 5 mg Pantoprazole Sodium (Protonix) 40 mg PO DAILY [facility] Last Admin: 03/20/17 09:50 Dose: 40 mg Polyethylene Glycol (Miralax) 17 gm PO DAILY [facility] Last Admin: 03/20/17 07:45 Dose: Not Given Senna/Docusate Sodium (Senokot-S, Hillary-Colace) 2 tablet PO BID [facility] Last Admin: 03/20/17 07:44 Dose: 2 tablet Assessment/Plan Active and Suspected Problems Hyperlipidemia (Acute) Back pain (Acute) Essential hypertension, benign (Acute) S/P laminectomy (Acute) Patient is a 77 years old female who was admitted to on 03/18/17 after she had laminectomy of lumbar spine on 03/14/[address] [facility] by Dr[address] Dr. Oscar Rosas. She was admitted to to continue rehabilitation. She is complaining of persisting pain in the lumbar area with reasonable pain control with current regimen so far. She is also having constipation, has not had bowel movements since the time of surgery. #1 Lumbar spondylolisthesis with lumbar spinal stenosis S/P laminectomy bone graft lumbar spine. Surgery was on 03/14/16. Continue rehab. #2 Essential hypertension. Blood pressure is adequate. Continue current medications. #3 Hyperlipidemia. Chronic constipation: She is on senna S2 tablets p.o. twice daily, MiraLAX daily and Dulcolax suppository as needed. Code Visit Inpatient E&M: 18840 Subs Hosp L2
[2017-03-20] MEDS: Atorvastatin Calcium 10 MG Tablet PO (20:40)
--- NOTE | 2017-03-20 20:41 | NURSING ---
per pt request for early hs meds to enable uninterupted bedrest
[2017-03-20 20:54] VITALS: BP 100/62; PULSE 88; RESP 18; TEMP 36.5; O2SAT 95
[2017-03-21] MEDS: oxyCODONE 5 MG Tablet PO ×4 (00:40→21:00)
[2017-03-21 07:19] VITALS: O2SAT 97
[2017-03-21 07:33] VITALS: BP 150/66; PULSE 85; RESP 16; TEMP 36.7; O2SAT 97
[2017-03-21] MEDS: Gabapentin 100 MG Capsule PO ×3 (07:50→16:26)
[2017-03-21] MEDS: Pantoprazole Sodium 40 MG Tablet PO (07:50)
[2017-03-21] MEDS: Senna/Docusate Sodium 1 Tablet 2 TABLET PO ×2 (07:50→20:58)
[2017-03-21] MEDS: Calcium Carb/Vitamin D 1 TABLET Tablet PO (07:51)
[2017-03-21] MEDS: Lisinopril 10 MG Tablet PO (07:51)
[2017-03-21] MEDS: Atenolol 50 MG Tablet PO (07:51)
[2017-03-21] MEDS: Polyethylene Glycol 3350 17 GM PACKET PO (07:53)
[2017-03-21 20:10] VITALS: BP 128/68; PULSE 88; RESP 16; TEMP 36.8; O2SAT 98
[2017-03-21] MEDS: Atorvastatin Calcium 10 MG Tablet PO (20:58)
[2017-03-22] MEDS: oxyCODONE 5 MG Tablet PO ×4 (02:10→23:41)
--- NOTE | 2017-03-22 03:09 | NURSING ---
Reviewed and agree with LPNs fims and handoff
[2017-03-22] MEDS: Alendronate Sodium 70 MG Tablet PO (06:33)
[2017-03-22 07:34] VITALS: BP 121/47; PULSE 92; RESP 18; TEMP 36.8; O2SAT 97
[2017-03-22] MEDS: Gabapentin 100 MG Capsule PO ×3 (07:51→16:37)
[2017-03-22] MEDS: Atenolol 50 MG Tablet PO (07:51)
[2017-03-22] MEDS: Pantoprazole Sodium 40 MG Tablet PO (07:51)
[2017-03-22] MEDS: Lisinopril 10 MG Tablet PO (07:51)
[2017-03-22] MEDS: Polyethylene Glycol 3350 17 GM PACKET PO (07:51)
[2017-03-22] MEDS: Senna/Docusate Sodium 1 Tablet 2 TABLET PO ×2 (07:51→20:19)
[2017-03-22] MEDS: Calcium Carb/Vitamin D 1 TABLET Tablet PO (07:51)
[2017-03-22] MEDS: Atorvastatin Calcium 10 MG Tablet PO (20:19)
[2017-03-22] MEDS: Acetaminophen 500 MG Tablet 1000 MG PO (20:24)
[2017-03-22 20:25] VITALS: BP 115/41; PULSE 77; RESP 16; TEMP 36.9; O2SAT 94
[2017-03-23] MEDS: oxyCODONE 5 MG Tablet PO ×2 (04:18→23:52)
[2017-03-23] MEDS: Acetaminophen 500 MG Tablet 1000 MG PO ×2 (07:08→19:31)
[2017-03-23 07:29] VITALS: BP 136/78; PULSE 76; RESP 18; TEMP 36.6; O2SAT 97
[2017-03-23] MEDS: Atenolol 50 MG Tablet PO (07:50)
[2017-03-23] MEDS: Calcium Carb/Vitamin D 1 TABLET Tablet PO (07:50)
[2017-03-23] MEDS: Gabapentin 100 MG Capsule PO ×2 (07:50→11:37)
[2017-03-23] MEDS: Senna/Docusate Sodium 1 Tablet 2 TABLET PO ×2 (07:50→19:32)
[2017-03-23] MEDS: Lisinopril 10 MG Tablet PO (07:50)
[2017-03-23] MEDS: Pantoprazole Sodium 40 MG Tablet PO (07:50)
[2017-03-23] MEDS: Polyethylene Glycol 3350 17 GM PACKET PO (07:51)
--- NOTE | 2017-03-23 10:26 | NURSING ---
ambulating in pérez with staff
[2017-03-23] MEDS: fentaNYL 25 MCG Patch TRANSDERM. (11:37)
--- NOTE | 2017-03-23 16:28 | NURSING ---
spoke with dr freed d/t patient c/o burning, n/t sensation from lower back down to thighs, intermittently. new order to increase Neurontin 300 mg tid.
--- NOTE | 2017-03-23 16:36 | PCM.PN.HOSP ---
Patient Problems: Active and Suspected Problems Hyperlipidemia (Acute) Back pain (Acute) Essential hypertension, benign (Acute) S/P laminectomy (Acute) Subjective: Patient is doing well with the physical therapy. Lumbar laminectomy surgical scar is healing well. No discharge. Feels mild soreness of thigh muscles. Vitals/I&O's: Vital Signs Temp Pulse Resp BP Pulse Ox 97.9 F 76 18 136/78 H 97 03/23/17 07:29 03/23/17 07:29 03/23/17 07:29 03/23/17 07:29 03/23/17 07:29 Oxygen Delivery Method Room Air Weight: 135 lb 0.001 oz Body Mass Index (BMI) 26.4 Intake and Output for Last 24 Hours 03/21/17 03/22/17 03/23/17 23:59 23:59 23:59 Intake Total 320 / 320 360 / 360 240 / 240 Balance 320 / 320 360 / 360 240 / 240 General: Alert, Oriented x3, Cooperative HEENT: Atraumatic, PERRLA, EOMI, Normocephalic Neck: Supple, No JVD, Negative Carotid Bruits Lungs: Clear to auscultation, Normal air movement, No rhonchi Cardiovascular: Regular rate, Regular Rhythm, Normal S1, Normal S2, No murmurs Abdomen: Bowel Sounds Present, Soft, Non Tender, Non-Distended Extremities: No edema, Capillary Refill Less than 3 Seconds Skin: No rashes, No breakdown Musculoskeletal: No Tenderness to Palpation of Joints or Extremities, Arthritic Changes, - - Surgical scar over lumbar laminectomy surgery is healing well. No discharge. No paraspinal muscle tenderness/spasm. Neurological: Cranial nerves II-XII grossly intact Psych/Mental Status: Normal Affect, Appropriate Current Medications Acetaminophen (Tylenol) 1,000 mg PO Q8H PRN PRN PRN Reason: MILD-MOD PAIN (1-5) Last Admin: 03/23/17 07:08 Dose: 1,000 mg Alendronate Sodium (Fosamax) 70 mg PO QWEEK [facility] Last Admin: 03/22/17 06:33 Dose: 70 mg Atenolol (Tenormin (Beta Kailee)) 50 mg PO DAILY [facility] Last Admin: 03/23/17 07:50 Dose: 50 mg Atorvastatin Calcium (Lipitor) 10 mg PO DAILY@2200 [facility] Last Admin: 03/22/17 20:19 Dose: 10 mg Bisacodyl (Dulcolax) 10 mg RECTAL .PRN X 1 PRN PRN Reason: Constipation Last Admin: 03/19/17 20:51 Dose: 10 mg Calcium/Vitamin D (Os-[place] 500mg + D) [facility] Last Admin: 03/23/17 07:50 Dose: 1 tablet Cholecalciferol (Vitamin D) [facility] Last Admin: 03/23/17 07:50 Dose: 1,000 unit Fentanyl (Duragesic) 25 mcg TRANSDERM. Q72H [facility] Last Admin: 03/23/17 11:37 Dose: 25 mcg Gabapentin (Neurontin) 300 mg PO TIDCM [facility] Lisinopril (Zestril) 10 mg PO DAILY [facility] Last Admin: 03/23/17 07:50 Dose: 10 mg Magnesium Hydroxide (Milk Of Magnesia) 30 ml PO .PRN X 1 PRN PRN Reason: Constipation Last Admin: 03/18/17 22:48 Dose: 30 ml Multivitamins/Minerals ([facility]cuvite) [facility] Last Admin: 03/23/17 07:50 Dose: 1 tablet Nutritional Formula (Lactose Free) (Ensure Enlive) 120 ml PO 4X/DAY [facility] Last Admin: 03/23/17 14:10 Dose: Not Given Ondansetron HCl (Zofran Odt) 4 mg PO Q6H PRN PRN PRN Reason: NAUSEA/VOMITING Oxycodone HCl (Oxyir) 5 mg PO Q4H PRN PRN PRN Reason: MODERATE PAIN (4-5/10) Last Admin: 03/23/17 04:18 Dose: 5 mg Pantoprazole Sodium (Protonix) 40 mg PO DAILY [facility] Last Admin: 03/23/17 07:50 Dose: 40 mg Polyethylene Glycol (Miralax) 17 gm PO DAILY [facility] Last Admin: 03/23/17 07:51 Dose: 17 gm Senna/Docusate Sodium (Senokot-S, Hillary-Colace) 2 tablet PO BID [facility] Last Admin: 03/23/17 07:50 Dose: 2 tablet Assessment/Plan Active and Suspected Problems Hyperlipidemia (Acute) Back pain (Acute) Essential hypertension, benign (Acute) S/P laminectomy (Acute) Patient is a 77 years old female who was admitted to on 03/18/17 after she had laminectomy of lumbar spine on 03/14/16 at [facility] by Dr. Dr. Oscar Rosas. She was admitted to to continue rehabilitation. She is complaining of persisting pain in the lumbar area with reasonable pain control with current regimen so far. She is also having constipation, has not had bowel movements since the time of surgery. #1 Lumbar spondylolisthesis with lumbar spinal stenosis S/P laminectomy bone graft lumbar spine. Surgery was on 03/14/16. Patient can lift her both lower extremities. Doing well with PT and OT. #2 Essential hypertension. Blood pressure is adequate. Continue current medications. #3 Hyperlipidemia. Chronic constipation: She is on senna S2 tablets p.o. twice daily, MiraLAX daily and Dulcolax suppository as needed. Code Visit Inpatient E&M: 82232 Subs Hosp L2
--- NOTE | 2017-03-23 16:40 | PN_ITS ---
Patient Problems: Active and Suspected Problems Hyperlipidemia (Acute) Back pain (Acute) Essential hypertension, benign (Acute) S/P laminectomy (Acute) Subjective: Patient is doing well with the physical therapy. Lumbar laminectomy surgical scar is healing well. No discharge. Feels mild soreness of thigh muscles. Vitals/I&O's: Vital Signs Temp Pulse Resp BP Pulse Ox 97.9 F 76 18 136/78 H 97 03/23/17 07:29 03/23/17 07:29 03/23/17 07:29 03/23/17 07:29 03/23/17 07:29 Oxygen Delivery Method Room Air Weight: 135 lb 0.001 oz Body Mass Index (BMI) 26.4 Intake and Output for Last 24 Hours 03/21/17 03/22/17 03/23/17 23:59 23:59 23:59 Intake Total 320 / 320 360 / 360 240 / 240 Balance 320 / 320 360 / 360 240 / 240 General: Alert, Oriented x3, Cooperative HEENT: Atraumatic, PERRLA, EOMI, Normocephalic Neck: Supple, No JVD, Negative Carotid Bruits Lungs: Clear to auscultation, Normal air movement, No rhonchi Cardiovascular: Regular rate, Regular Rhythm, Normal S1, Normal S2, No murmurs Abdomen: Bowel Sounds Present, Soft, Non Tender, Non-Distended Extremities: No edema, Capillary Refill Less than 3 Seconds Skin: No rashes, No breakdown Musculoskeletal: No Tenderness to Palpation of Joints or Extremities, Arthritic Changes, - - Surgical scar over lumbar laminectomy surgery is healing well. No discharge. No paraspinal muscle tenderness/spasm. Neurological: Cranial nerves II-XII grossly intact Psych/Mental Status: Normal Affect, Appropriate Current Medications Acetaminophen (Tylenol) 1,000 mg PO Q8H PRN PRN PRN Reason: MILD-MOD PAIN (1-5) Last Admin: 03/23/17 07:08 Dose: 1,000 mg Alendronate Sodium (Fosamax) 70 mg PO QWEEK [facility] Last Admin: 03/22/17 06:33 Dose: 70 mg Atenolol (Tenormin (Beta Kailee)) 50 mg PO DAILY [facility] Last Admin: 03/23/17 07:50 Dose: 50 mg Atorvastatin Calcium (Lipitor) 10 mg PO DAILY@2200 [facility] Last Admin: 03/22/17 20:19 Dose: 10 mg Bisacodyl (Dulcolax) 10 mg RECTAL .PRN X 1 PRN PRN Reason: Constipation Last Admin: 03/19/17 20:51 Dose: 10 mg Calcium/Vitamin D (Os-[place] 500mg + D) [facility] Last Admin: 03/23/17 07:50 Dose: 1 tablet Cholecalciferol (Vitamin D) 1,000 unit [facility] Last Admin: 03/23/17 07:50 Dose: 1,000 unit Fentanyl (Duragesic) 25 mcg TRANSDERM. Q72H [facility] Last Admin: 03/23/17 11:37 Dose: 25 mcg Gabapentin (Neurontin) 300 mg PO TIDCM [facility] Lisinopril (Zestril) 10 mg PO DAILY [facility] Last Admin: 03/23/17 07:50 Dose: 10 mg Magnesium Hydroxide (Milk Of Magnesia) 30 ml PO .PRN X 1 PRN PRN Reason: Constipation Last Admin: 03/18/17 22:48 Dose: 30 ml Multivitamins/Minerals (Ocuvite) 1 tablet PO [facility] Last Admin: 03/23/17 07:50 Dose: 1 tablet Nutritional Formula (Lactose Free) (Ensure Enlive) 120 ml PO 4X/DAY [facility] Last Admin: 03/23/17 14:10 Dose: Not Given Ondansetron HCl (Zofran Odt) 4 mg PO Q6H PRN PRN PRN Reason: NAUSEA/VOMITING Oxycodone HCl (Oxyir) 5 mg PO Q4H PRN PRN PRN Reason: MODERATE PAIN (4-5/10) Last Admin: 03/23/17 04:18 Dose: 5 mg Pantoprazole Sodium (Protonix) 40 mg PO DAILY [facility] Last Admin: 03/23/17 07:50 Dose: 40 mg Polyethylene Glycol (Miralax) 17 gm PO DAILY [facility] Last Admin: 03/23/17 07:51 Dose: 17 gm Senna/Docusate Sodium (Senokot-S, Hillary-Colace) 2 tablet PO BID [facility] Last Admin: 03/23/17 07:50 Dose: 2 tablet Assessment/Plan Active and Suspected Problems Hyperlipidemia (Acute) Back pain (Acute) Essential hypertension, benign (Acute) S/P laminectomy (Acute) Patient is a 77 years old female who was admitted to on 03/18/17 after she had laminectomy of lumbar spine on 03/14/16 at [facility] by Dr. Dr. Oscar Rosas. She was admitted to to continue rehabilitation. She is complaining of persisting pain in the lumbar area with reasonable pain control with current regimen so far. She is also having constipation, has not had bowel movements since the time of surgery. #1 Lumbar spondylolisthesis with lumbar spinal stenosis S/P laminectomy bone graft lumbar spine. Surgery was on 03/14/16. Patient can lift her both lower extremities. Doing well with PT and OT. #2 Essential hypertension. Blood pressure is adequate. Continue current medications. #3 Hyperlipidemia. Chronic constipation: She is on senna S2 tablets p.o. twice daily, MiraLAX daily and Dulcolax suppository as needed. Code Visit Inpatient E&M: 47538 Subs Hosp L2
[2017-03-23] MEDS: Gabapentin 300 MG Capsule PO (17:54)
[2017-03-23 19:25] VITALS: BP 120/59; PULSE 87; RESP 17; TEMP 36.6; O2SAT 97
[2017-03-23] MEDS: Atorvastatin Calcium 10 MG Tablet PO (19:31)
[2017-03-24] MEDS: Acetaminophen 500 MG Tablet 1000 MG PO ×3 (04:21→21:23)
[2017-03-24] MEDS: oxyCODONE 5 MG Tablet PO ×2 (05:24→10:02)
--- NOTE | 2017-03-24 06:09 | NURSING ---
Pt states after the neurontin increase last cam she felt SOB and dizzy. Pt states she also needed to have a bm (at the same time) last cam and resulted in having a large formed stool. Pt now states is feeling dizzy and slightly SOB. Sats 99%; BP 149/83. States is having pain 9/10 in back and right hip. Ice bags x3 to back and hip. Refuses polar care due to the lumpy nature of the pad. States the ice packs really helps. Will continue to monitor
[2017-03-24 07:44] VITALS: BP 157/71; PULSE 83; RESP 16; O2SAT 97
--- NOTE | 2017-03-24 09:17 | PN.NEURO_ITS ---
Patient Problems: Active and Suspected Problems Hyperlipidemia (Acute) Back pain (Acute) Essential hypertension, benign (Acute) S/P laminectomy (Acute) Subjective: Staffed in Team meeting. Family was at bedside. Questions answered. With Physical therapy, She is stand by assist with transfers, going from a sitting to a standing position. She is able to ambulate about 275ft with walker at a contact guard assist. She is ambulating up and down about 5 steps using handrails on both sides at contact guard assist. With Occupational therapy, she is able to do her own personnel care, she is able to use assistive devices to get her socks, underwear, pants and shoes on. She is requiring cues to remember her back precautions, when showering or when turning to address someone in the room. With Nursing she is having additional pain that is radiating down both her legs from her hip area, this is interfering with her ability to stand for any period of time now she can only tolerate about 3 to 5 minutes. Will increase the fentanyl from 25mcq to 50mcq, schedule the Tylenol, and d/c the GPN since she is having side effects from the increase in dosage over the weekend. Will also schedule an MRI with out contrast of her Lumbar back to see what could be causing the increase in pain. Will re-team her on Friday 03/31. - Physical Exam General: Alert, Oriented x3, Cooperative HEENT: Atraumatic, PERRLA, EOMI, Normocephalic Neck: Supple, No JVD, Negative Carotid Bruits Lungs: Clear to auscultation, Normal air movement Cardiovascular: Regular rate, No murmurs Abdomen: Bowel Sounds Present, Soft, Non Tender Extremities: No edema, Capillary Refill Less than 3 Seconds Skin: No rashes, No breakdown Musculoskeletal: No Tenderness to Palpation of Joints or Extremities Neurological: Cranial nerves II-XII grossly intact Psych/Mental Status: Normal Affect, Appropriate Vital Signs Temp Pulse Resp BP Pulse Ox 98 F 83 16 157/71 H 97 03/23/17 19:25 03/24/17 07:44 03/24/17 07:44 03/24/17 07:44 03/24/17 07:44 Oxygen Delivery Method Room Air Weight: 61.235 kg Body Mass Index (BMI) 26.4 Intake and Output for Last 24 Hours 03/22/17 03/23/17 03/24/17 23:59 23:59 23:59 Intake Total 360 / 360 480 / 480 240 / 240 Balance 360 / 360 480 / 480 240 / 240 Active Medications Acetaminophen (Tylenol) 1,000 mg PO Q8H PRN PRN PRN Reason: MILD-MOD PAIN (1-510) Last Admin: 03/24/17 04:21 Dose: 1,000 mg Alendronate Sodium (Fosamax) 70 mg PO QWEEK [facility] Last Admin: 03/22/17 06:33 Dose: 70 mg Atenolol (Tenormin (Beta Kailee)) 50 mg PO DAILY [facility] Last Admin: 03/23/17 07:50 Dose: 50 mg Atorvastatin Calcium (Lipitor) 10 mg PO DAILY@2200 [facility] Last Admin: 03/23/17 19:31 Dose: 10 mg Bisacodyl (Dulcolax) 10 mg RECTAL .PRN X 1 PRN PRN Reason: Constipation Last Admin: 03/19/17 20:51 Dose: 10 mg Calcium/Vitamin D (Os-[place] 500mg + D) [facility] Last Admin: 03/23/17 07:50 Dose: 1 tablet Cholecalciferol (Vitamin D) 1,000 [facility]ID[facility] Last Admin: 03/23/17 17:53 Dose: 1,000 unit Fentanyl (Duragesic) 25 mcg TRANSDERM. Q72H [facility] Last Admin: 03/23/17 11:37 Dose: 25 mcg Gabapentin (Neurontin) 300 mg PO TIDCM [facility] Last Admin: 03/23/17 17:54 Dose: 300 mg Lisinopril (Zestril) 10 mg PO DAILY [facility] Last Admin: 03/23/17 07:50 Dose: 10 mg Magnesium Hydroxide (Milk Of Magnesia) 30 ml PO .PRN X 1 PRN PRN Reason: Constipation Last Admin: 03/18/17 22:48 Dose: 30 ml Multivitamins/Minerals (Ocuvite) 1 tablet [facility] Last Admin: 03/23/17 07:50 Dose: 1 tablet Nutritional Formula (Lactose Free) (Ensure Enlive) 120 ml PO 4X/DAY [facility] Last Admin: 03/23/17 19:31 Dose: 120 ml Ondansetron HCl (Zofran Odt) 4 mg PO Q6H PRN PRN PRN Reason: NAUSEA/VOMITING Oxycodone HCl (Oxyir) 5 mg PO Q4H PRN PRN PRN Reason: MODERATE PAIN (4-5/10) Last Admin: 03/24/17 05:24 Dose: 5 mg Pantoprazole Sodium (Protonix) 40 mg PO DAILY [facility] Last Admin: 03/23/17 07:50 Dose: 40 mg Polyethylene Glycol (Miralax) 17 gm PO DAILY [facility] Last Admin: 03/23/17 07:51 Dose: 17 gm Senna/Docusate Sodium (Senokot-S, Hillary-Colace) 2 tablet PO BID [facility] Last Admin: 03/23/17 19:32 Dose: 2 tablet Assessment/Plan Active and Suspected Problems Hyperlipidemia (Acute) Back pain (Acute) Essential hypertension, benign (Acute) S/P laminectomy (Acute) Debility status post laminectomy bone graft lumbar spine. Goal of rehab is nondenominational of prior level of functional independence. Plan: - Physical therapy for gait and balance - Occupational Therapy for ADLs - As needed analgesics - Bowel protocol - DVT prophylaxis: - HLD - continue home dose of statin - HTN - stable => continue home medications - Weight bearing status => WBAT, Lumbar brace on at all time when out of bed - Constipation - Miralax BID, and MOM in addition to Bowel regimen - Pre diabetes -> diet controlled, check fasting BS x 3days. - Pst op pain - persistent pain will start patient on a low dose Fentanyl patch 12.5mcq/24hrs => pain is better will increase patch to 25mcq/24 hrs. for better control. Now has pain that radiate down both legs, is not tolerating the GPN will D/C it increase the Fentanyl patch to 50mcq and schedule the Tylenol 1, 000mg Q8 hrs.
[2017-03-24] MEDS: Calcium Carb/Vitamin D 1 TABLET Tablet PO (10:02)
[2017-03-24] MEDS: Pantoprazole Sodium 40 MG Tablet PO (10:02)
[2017-03-24] MEDS: Atenolol 50 MG Tablet PO (10:02)
[2017-03-24] MEDS: Lisinopril 10 MG Tablet PO (10:02)
[2017-03-24] MEDS: Senna/Docusate Sodium 1 Tablet 2 TABLET PO ×2 (10:04→21:25)
--- NOTE | 2017-03-24 10:43 | MRI_ITS ---
STUDY: MRI LUMBAR SPINE WITHOUT CONTRAST REASON FOR EXAM: Female, 77 years old. LOW BACK PAIN -- pain low back and rt leg since lumbar surgery 10 days ago, patient did fall 2 days post op TECHNIQUE: Standardized fat and water weighted pulse sequences were obtained in the sagittal and axial planes. COMPARISON: November 07, 2016 FINDINGS: Normal lumbar lordosis. Normal conus medullaris that terminates at the L2. There is multi-level degenerative disc disease with multilevel disc desiccation and disc space narrowing. Evaluation of the individual levels is as follows. T12-L1: There is no significant central canal or foraminal stenosis. L1-2: There is a minimal disc bulge and bilateral facet hypertrophy without significant central canal or foraminal stenosis. L2-3: There is moderate disc space narrowing and endplate spondylosis. There is stable retrolisthesis and bilateral facet hypertrophy with mild central canal stenosis. There is mild right foraminal stenosis. There is no significant left foraminal stenosis. L3-4: There is moderate disc space narrowing and endplate spondylosis. There is now transpedicular fusion and decompression laminectomy. There is right microdiscectomy with improved right lateral recess and foraminal patency. There is stable grade 1 anterolisthesis and disc uncovering with mild central canal stenosis. There is mild bilateral foraminal stenosis. L4-5: There is mild disc space narrowing and endplate spondylosis. There is now transpedicular fusion and decompression laminectomy. There is stable minimal anterolisthesis. There is no significant foraminal stenosis. There is a fluid collection at the laminectomy defect which measures approximately 3.5 x 2.7 x 5.6 cm. There is mild mass effect on the posterior thecal sac. Evaluation is limited without IV contrast. L5-S1: There is severe disc space narrowing and endplate spondylosis. There is a moderate disc osteophyte complex and facet arthropathy without significant central canal stenosis. There is moderate right and mild left foraminal stenosis. Normal visualized paraspinous soft tissue structures. MRI/Spine Lumbar (Routine) IMPRESSION: L3-S1 posterior fusion and decompression laminectomies. 3.5 x 5.6 cm fluid collection with mild mass effect. Further evaluation with contrast-enhanced MRI can be obtained. Multilevel degenerative changes. Electronically Signed: Juan Romano MD at 13:18 EST Tel , Service support ,
--- NOTE | 2017-03-24 11:27 | CASEMGMT ---
Team meeting held. Patient present as well as patient family. No discharge date set at this time. Patient has been approved 20 Medicare days with a discharge on or before 04/07/17. Patient plans to continue with further care and treatment on the Inpatient Rehab Unit at this time. Patient plans to discharge home with spouse at time of discharge. Support given. Will continue to follow. Gisela DELA CRUZ, SENIOR SCRUM MASTER
--- NOTE | 2017-03-24 14:24 | NURSING ---
Made Kalyan PANDA aware of MRI
[2017-03-24 16:48] LABS: Absolute Lymphocyte Count 2.26 X10^3/ul (0.83-4.51); Absolute Neutrophil Count 5.4 X10^3/uL (2.0-7.7); Basophil# 0.03 X10^3/uL; Basophil% 0.4 % (0-1); Eosinophil# 0.12 X10^3/uL; Eosinophils% 1.4 % (0-5); Hematocrit 30.1 % (37-47); Hemoglobin 9.6 g/dl (12.0-15.0); Lymphocyte # 2.26 X10^3/ul (4.0); Lymphocyte % 27.2 % (19-41); Mean Corp Hgb Conc 31.9 g/gl (32-36); Mean Corpuscular Volume 90.9 fL (81-99); Mean Platelet Vol. 8.8 fl (6.2-12.0); Monocyte# 0.44 X10^3/uL; Monocyte% 5.3 % (0-10); POSITIVE COUNT NO; POSITIVE DIFFERENTIAL NO; POSITIVE MORPHOLOGY NO; Platelet Count 317 K/mm3 (150-450); RBC Distribution Width CV 12.3 % (11.6-14.6); RBC Distribution Width SD 40.7 fl (35.1-43.9); Red Blood Count 3.31 M/mm3 (4.2-5.4); White Blood Count 8.3 K/mm3 (4.4-11.0)
[2017-03-24 17:01] LABS: ALB/GLOB Ratio 0.9 RATIO (0.9-2.4); AST(SGOT) 18 U/L (15-37); Alanine Aminotransfer ALT/SGPT 23 U/L (12-78); Albumin, Serum 3.2 g/dL (3.4-5.0); Alkaline Phosphatase 78 U/L (45-117); Anion Gap 6 (5-15); BUN 19 mg/dL (7-18); BUN/Creat Ratio 23.2 RATIO (10-20); Chloride 98 mmol/L (98-107); Creatinine, Serum 0.82 mg/dL (0.55-1.02); EST Glomerular Filtration Rate 72 mL/min (>60); Est Glom Filt Rate - Afr Amer 87 mL/min (>60); Estimated Creatinine Clearance 41.27 ml/min; Globulin 3.6 g/dL (2.2-4.2); Glucose 168 mg/dL (70-110); Potassium 4.2 mmol/L (3.5-5.1); Protein, Total 6.8 g/dL (6.4-8.2); Sodium Level 136 mmol/L (136-145)
[2017-03-24] MEDS: Atorvastatin Calcium 10 MG Tablet PO (21:25)
[2017-03-24 21:42] VITALS: BP 144/78; PULSE 96; RESP 18; TEMP 36.8; O2SAT 97
[2017-03-25] MEDS: oxyCODONE 5 MG Tablet PO ×4 (03:11→18:22)
[2017-03-25] MEDS: Acetaminophen 500 MG Tablet 1000 MG PO ×3 (05:19→20:14)
[2017-03-25] MEDS: Calcium Carb/Vitamin D 1 TABLET Tablet PO (07:49)
[2017-03-25] MEDS: Pantoprazole Sodium 40 MG Tablet PO (07:50)
[2017-03-25] MEDS: Atenolol 50 MG Tablet PO (07:50)
[2017-03-25] MEDS: Lisinopril 10 MG Tablet PO (07:50)
[2017-03-25 07:58] VITALS: BP 150/65; PULSE 63; RESP 17; TEMP 36.9; O2SAT 98
--- NOTE | 2017-03-25 08:32 | NURSING ---
pt left for outside appt with spouse to [facility]
--- NOTE | 2017-03-25 12:36 | NURSING ---
pt returned from out side appt.
[2017-03-25] MEDS: MethylPREDNISolone DosePak 4 MG BOX PO ×2 (18:21→20:16)
[2017-03-25 20:00] VITALS: BP 135/58; PULSE 82; RESP 20; TEMP 36.8; O2SAT 99
[2017-03-25] MEDS: Gabapentin 100 MG Capsule 200 MG PO (20:15)
[2017-03-25] MEDS: Atorvastatin Calcium 10 MG Tablet PO (20:16)
[2017-03-25] MEDS: Senna/Docusate Sodium 1 Tablet 2 TABLET PO (20:16)
--- NOTE | 2017-03-26 00:41 | NURSING ---
REVIEWED AND AGREE WITH PRESS SETTER DOCUMENTATION.
[2017-03-26] MEDS: Acetaminophen 500 MG Tablet 1000 MG PO ×3 (06:54→22:43)
[2017-03-26 08:09] VITALS: BP 123/53; PULSE 96; RESP 17; TEMP 36.7; O2SAT 97
[2017-03-26] MEDS: Lisinopril 10 MG Tablet PO (08:11)
[2017-03-26] MEDS: MethylPREDNISolone DosePak 4 MG BOX PO ×4 (08:11→22:44)
[2017-03-26] MEDS: Atenolol 50 MG Tablet PO (08:12)
[2017-03-26] MEDS: Gabapentin 100 MG Capsule PO (08:12)
[2017-03-26] MEDS: Calcium Carb/Vitamin D 1 TABLET Tablet PO (08:12)
[2017-03-26] MEDS: Pantoprazole Sodium 40 MG Tablet PO (08:12)
[2017-03-26] MEDS: Senna/Docusate Sodium 1 Tablet 2 TABLET PO (08:12)
[2017-03-26] MEDS: Polyethylene Glycol 3350 17 GM PACKET PO (08:13)
[2017-03-26] MEDS: oxyCODONE 5 MG Tablet PO ×2 (08:51→19:07)
--- NOTE | 2017-03-26 09:40 | PCM.PN.NEU ---
Patient Problems: Active and Suspected Problems Hyperlipidemia (Acute) Back pain (Acute) Essential hypertension, benign (Acute) S/P laminectomy (Acute) Subjective: Patient seen and examined. Still having some pain from the right hip and thigh area, pain medication is working and the pain is more tolerable. Was able to participate in therapy with out difficulty. No acute issues over night. Denies any shortness of breath, or chest pain. No issues with GI/. - Physical Exam General: Alert, Oriented x3, Cooperative HEENT: Atraumatic, PERRLA, EOMI, Normocephalic Neck: Supple, No JVD, Negative Carotid Bruits Lungs: Clear to auscultation, Normal air movement Cardiovascular: Regular rate, No murmurs Abdomen: Bowel Sounds Present, Soft, Non Tender Extremities: No edema, Capillary Refill Less than 3 Seconds Skin: No rashes, No breakdown Musculoskeletal: No Tenderness to Palpation of Joints or Extremities Neurological: Cranial nerves II-XII grossly intact Psych/Mental Status: Normal Affect, Appropriate Vital Signs Temp Pulse Resp BP Pulse Ox 98.0 F 96 17 123/53 H 97 03/26/17 08:09 03/26/17 08:09 03/26/17 08:09 03/26/17 08:09 03/26/17 08:09 Oxygen Delivery Method Room Air Weight: 58.8 kg Body Mass Index (BMI) 26.4 Intake and Output for Last 24 Hours 03/24/17 03/25/17 03/26/17 23:59 23:59 23:59 Intake Total 720 / 720 600 / 600 240 / 240 Balance 720 / 720 600 / 600 240 / 240 Active Medications Acetaminophen (Tylenol) 1,000 mg PO Q8 [facility] Last Admin: 03/26/17 06:54 Dose: 1,000 mg Alendronate Sodium (Fosamax) 70 mg PO QWEEK [facility] Last Admin: 03/22/17 06:33 Dose: 70 mg Atenolol (Tenormin (Beta Kailee)) 50 mg PO DAILY [facility] Last Admin: 03/26/17 08:12 Dose: 50 mg Atorvastatin Calcium (Lipitor) 10 mg PO DAILY@2200 [facility] Last Admin: 03/25/17 20:16 Dose: 10 mg Bisacodyl (Dulcolax) 10 mg RECTAL .PRN X 1 PRN PRN Reason: Constipation Last Admin: 03/19/17 20:51 Dose: 10 mg Calcium/Vitamin D (Os-[place] 500mg + D) [facility] Last Admin: 03/26/17 08:12 Dose: 1 tablet Cholecalciferol (Vitamin D) [facility] Last Admin: 03/26/17 08:12 Dose: 1,000 unit Fentanyl (Duragesic) 50 mcg TRANSDERM. Q72H [facility] Last Admin: 03/24/17 11:49 Dose: 50 mcg Gabapentin (Neurontin) 100 mg PO DAILY@0800 [facility] Last Admin: 03/26/17 08:12 Dose: 100 mg Gabapentin (Neurontin) 200 mg PO QHS [facility] Last Admin: 03/25/17 20:15 Dose: 200 mg Lisinopril (Zestril) 10 mg PO DAILY [facility] Last Admin: 03/26/17 08:11 Dose: 10 mg Magnesium Hydroxide (Milk Of Magnesia) 30 ml PO .PRN X 1 PRN PRN Reason: Constipation Last Admin: 03/18/17 22:48 Dose: 30 ml Methylprednisolone (Medrol Dosepak) 4 mg PO 0800,1200,1700 [facility] PRN Reason: Taper Stop: 03/30/17 08:59 Last Admin: 03/26/17 08:11 Dose: 4 mg Multivitamins/Minerals (Ocuvite) [facility] Last Admin: 03/26/17 08:12 Dose: 1 tablet Nutritional Formula (Lactose Free) (Ensure Enlive) 120 ml PO 4X/DAY [facility] Last Admin: 03/26/17 08:12 Dose: 120 ml Ondansetron HCl (Zofran Odt) 4 mg PO Q6H PRN PRN PRN Reason: NAUSEA/VOMITING Oxycodone HCl (Oxyir) 5 mg PO Q4H PRN PRN PRN Reason: MODERATE PAIN (4-5/10) Last Admin: 03/26/17 08:51 Dose: 5 mg Pantoprazole Sodium (Protonix) 40 mg PO DAILY [facility] Last Admin: 03/26/17 08:12 Dose: 40 mg Polyethylene Glycol (Miralax) 17 gm PO DAILY [facility] Last Admin: 03/26/17 08:13 Dose: 17 gm Senna/Docusate Sodium (Senokot-S, Hillary-Colace) 2 tablet PO BID [facility] Last Admin: 03/26/17 08:12 Dose: 2 tablet Assessment/Plan Active and Suspected Problems Hyperlipidemia (Acute) Back pain (Acute) Essential hypertension, benign (Acute) S/P laminectomy (Acute) Debility status post laminectomy bone graft lumbar spine. Goal of rehab is orthodoxy of prior level of functional independence. Plan: - Physical therapy for gait and balance - Occupational Therapy for ADLs - As needed analgesics - Bowel protocol - DVT prophylaxis: - HLD - continue home dose of statin - HTN - stable => continue home medications - Weight bearing status => WBAT, Lumbar brace on at all time when out of bed - Constipation - Miralax BID, and MOM in addition to Bowel regimen - Pre diabetes -> diet controlled, check fasting BS x 3days. - Post op pain - persistent pain will start patient on a low dose Fentanyl patch 12.5mcq/24hrs => pain is better will increase patch to 25mcq/24 hrs. for better control. Now has pain that radiate down both legs, is not tolerating the GPN will D/C it increase the Fentanyl patch to 50mcq and schedule the Tylenol 1,000mg Q8 hrs. - Appointment with Surgeon concerning radiating pain -> GPN was continued and he started a Medrol dose pack.
[2017-03-26 19:59] VITALS: BP 145/63; PULSE 83; RESP 20; TEMP 36.6; O2SAT 87
[2017-03-26] MEDS: Gabapentin 100 MG Capsule 200 MG PO (22:44)
[2017-03-26] MEDS: Atorvastatin Calcium 10 MG Tablet PO (22:46)
[2017-03-27] MEDS: oxyCODONE 5 MG Tablet PO ×4 (00:25→20:25)
[2017-03-27] MEDS: Acetaminophen 500 MG Tablet 1000 MG PO ×3 (05:34→21:15)
[2017-03-27] MEDS: Lisinopril 10 MG Tablet PO (07:38)
[2017-03-27] MEDS: MethylPREDNISolone DosePak 4 MG BOX PO ×4 (07:38→21:16)
[2017-03-27] MEDS: Senna/Docusate Sodium 1 Tablet 2 TABLET PO (07:38)
[2017-03-27] MEDS: Atenolol 50 MG Tablet PO (07:39)
[2017-03-27] MEDS: Polyethylene Glycol 3350 17 GM PACKET PO (07:39)
[2017-03-27] MEDS: Calcium Carb/Vitamin D 1 TABLET Tablet PO (07:39)
[2017-03-27] MEDS: Pantoprazole Sodium 40 MG Tablet PO (07:39)
[2017-03-27] MEDS: Gabapentin 100 MG Capsule PO (07:39)
[2017-03-27 07:46] VITALS: BP 138/64; PULSE 82; RESP 17; TEMP 37.1; O2SAT 95
--- NOTE | 2017-03-27 12:01 | PN.NEURO_ITS ---
Patient Problems: Active and Suspected Problems Hyperlipidemia (Acute) Back pain (Acute) Essential hypertension, benign (Acute) S/P laminectomy (Acute) Subjective: Patient seen and examined. No acute events over night. Still has some right sided back pain and inner thigh pain, Fentanyl patch was increased to 75mcq. Tolerating therapy. - Physical Exam General: Alert, Oriented x3, Cooperative HEENT: Atraumatic, PERRLA, EOMI, Normocephalic Neck: Supple, No JVD, Negative Carotid Bruits Lungs: Clear to auscultation, Normal air movement Cardiovascular: Regular rate, No murmurs Abdomen: Bowel Sounds Present, Soft, Non Tender Extremities: No edema, Capillary Refill Less than 3 Seconds Skin: No rashes, No breakdown Musculoskeletal: No Tenderness to Palpation of Joints or Extremities Neurological: Cranial nerves II-XII grossly intact Psych/Mental Status: Normal Affect, Appropriate Vital Signs Temp Pulse Resp BP Pulse Ox 98.8 F 82 17 138/64 H 95 03/27/17 07:46 03/27/17 07:46 03/27/17 07:46 03/27/17 07:46 03/27/17 07:46 Oxygen Delivery Method Room Air Weight: 58.8 kg Body Mass Index (BMI) 26.4 Intake and Output for Last 24 Hours 03/25/17 03/26/17 03/27/17 23:59 23:59 23:59 Intake Total 600 / 600 720 / 720 240 / 240 Balance 600 / 600 720 / 720 240 / 240 Active Medications Acetaminophen (Tylenol) 1,000 mg PO Q8 [facility] Last Admin: 03/27/17 05:34 Dose: 1,000 mg Alendronate Sodium (Fosamax) 70 mg PO QWEEK [facility] Last Admin: 03/22/17 06:33 Dose: 70 mg Atenolol (Tenormin (Beta Kailee)) 50 mg PO DAILY [facility] Last Admin: 03/27/17 07:39 Dose: 50 mg Atorvastatin Calcium (Lipitor) 10 mg PO DAILY@2200 [facility] Last Admin: 03/26/17 22:46 Dose: 10 mg Bisacodyl (Dulcolax) 10 mg RECTAL .PRN X 1 PRN PRN Reason: Constipation Last Admin: 03/19/17 20:51 Dose: 10 mg Calcium/Vitamin D (Os-[place] 500mg + D) [facility] Last Admin: 03/27/17 07:39 Dose: 1 tablet Cholecalciferol (Vitamin D) 1,000 unit [facility] Last Admin: 03/27/17 07:39 Dose: 1,000 unit Fentanyl (Duragesic) 75 mcg TRANSDERM. Q72H [facility] Last Admin: 03/27/17 10:25 Dose: 75 mcg Gabapentin (Neurontin) 100 mg PO DAILY@0800 [facility] Last Admin: 03/27/17 07:39 Dose: 100 mg Gabapentin (Neurontin) 200 mg PO QHS [facility] Last Admin: 03/26/17 22:44 Dose: 200 mg Lisinopril (Zestril) 10 mg PO DAILY [facility] Last Admin: 03/27/17 07:38 Dose: 10 mg Magnesium Hydroxide (Milk Of Magnesia) 30 ml PO .PRN X 1 PRN PRN Reason: Constipation Last Admin: 03/18/17 22:48 Dose: 30 ml Methylprednisolone (Medrol Dosepak) 4 mg PO 0800,1200,1700,2200 [facility] PRN Reason: Taper Stop: 03/30/17 08:59 Last Admin: 03/27/17 07:38 Dose: 4 mg Multivitamins/Minerals (Ocuvite) [facility] Last Admin: 03/27/17 07:39 Dose: 1 tablet Nutritional Formula (Lactose Free) (Ensure Enlive) 120 ml PO 4X/DAY [facility] Last Admin: 03/27/17 07:48 Dose: Not Given Ondansetron HCl (Zofran Odt) 4 mg PO Q6H PRN PRN PRN Reason: NAUSEA/VOMITING Oxycodone HCl (Oxyir) 5 mg PO Q4H PRN PRN PRN Reason: MODERATE PAIN (4-5/10) Last Admin: 03/27/17 04:33 Dose: 5 mg Pantoprazole Sodium (Protonix) 40 mg PO DAILY [facility] Last Admin: 03/27/17 07:39 Dose: 40 mg Polyethylene Glycol (Miralax) 17 gm PO DAILY [facility] Last Admin: 03/27/17 07:39 Dose: 17 gm Senna/Docusate Sodium (Senokot-S, Hillary-Colace) 2 tablet PO BID [facility] Last Admin: 03/27/17 07:38 Dose: 2 tablet Assessment/Plan Active and Suspected Problems Hyperlipidemia (Acute) Back pain (Acute) Essential hypertension, benign (Acute) S/P laminectomy (Acute) Debility status post laminectomy bone graft lumbar spine. Goal of rehab is zoroastrian of prior level of functional independence. Plan: - Physical therapy for gait and balance - Occupational Therapy for ADLs - As needed analgesics - Bowel protocol - DVT prophylaxis: - HLD - continue home dose of statin - HTN - stable => continue home medications - Weight bearing status => WBAT, Lumbar brace on at all time when out of bed - Constipation - Miralax BID, and MOM in addition to Bowel regimen - Pre diabetes -> diet controlled, check fasting BS x 3days. - Post op pain - persistent pain will start patient on a low dose Fentanyl patch 12.5mcq/24hrs => pain is better will increase patch to 25mcq/24 hrs. for better control. Now has pain that radiate down both legs, is not tolerating the GPN will D/C it increase the Fentanyl patch to 50mcq and schedule the Tylenol 1, 000mg Q8 hrs. Fentanyl patch increased to 75mcq/24 - Appointment with Surgeon concerning radiating pain -> GPN was continued and he started a Medrol dose pack.
[2017-03-27 20:27] VITALS: BP 154/69; PULSE 73; RESP 18; TEMP 36.9; O2SAT 97
[2017-03-27] MEDS: Gabapentin 100 MG Capsule 200 MG PO (21:19)
[2017-03-27] MEDS: Atorvastatin Calcium 10 MG Tablet PO (21:20)
[2017-03-28] MEDS: oxyCODONE 5 MG Tablet PO ×2 (03:40→13:27)
[2017-03-28] MEDS: Acetaminophen 500 MG Tablet 1000 MG PO ×3 (06:29→20:45)
[2017-03-28 08:17] VITALS: BP 118/80; PULSE 82; RESP 17; TEMP 36.5; O2SAT 90
[2017-03-28] MEDS: Atenolol 50 MG Tablet PO (08:20)
[2017-03-28] MEDS: Pantoprazole Sodium 40 MG Tablet PO (08:20)
[2017-03-28] MEDS: Polyethylene Glycol 3350 17 GM PACKET PO (08:20)
[2017-03-28] MEDS: Lisinopril 10 MG Tablet PO (08:20)
[2017-03-28] MEDS: MethylPREDNISolone DosePak 4 MG BOX PO ×3 (08:20→20:43)
[2017-03-28] MEDS: Senna/Docusate Sodium 1 Tablet 2 TABLET PO ×2 (08:20→20:44)
[2017-03-28] MEDS: Calcium Carb/Vitamin D 1 TABLET Tablet PO (08:21)
[2017-03-28] MEDS: Gabapentin 100 MG Capsule PO (08:22)
--- NOTE | 2017-03-28 12:40 | PCM.PN.NEU ---
Patient Problems: Active and Suspected Problems Hyperlipidemia (Acute) Back pain (Acute) Essential hypertension, benign (Acute) S/P laminectomy (Acute) Subjective: Patient seen and examined. No acute issues over night. Tolerating therapy. Pain is controlled with current medications. - Physical Exam General: Alert, Oriented x3, Cooperative HEENT: Atraumatic, PERRLA, EOMI, Normocephalic Neck: Supple, No JVD, Negative Carotid Bruits Lungs: Clear to auscultation, Normal air movement Cardiovascular: Regular rate, No murmurs Abdomen: Bowel Sounds Present, Soft, Non Tender Extremities: No edema, Capillary Refill Less than 3 Seconds Skin: No rashes, No breakdown Musculoskeletal: No Tenderness to Palpation of Joints or Extremities Neurological: Cranial nerves II-XII grossly intact Psych/Mental Status: Normal Affect, Appropriate Vital Signs Temp Pulse Resp BP Pulse Ox 97.7 F L 82 17 118/80 90 03/28/17 08:17 03/28/17 08:17 03/28/17 08:17 03/28/17 08:17 03/28/17 08:17 Oxygen Delivery Method Room Air Weight: 58.8 kg Body Mass Index (BMI) 26.4 Intake and Output for Last 24 Hours 03/26/17 03/27/17 03/28/17 23:59 23:59 23:59 Intake Total 720 / 720 600 / 600 240 / 240 Balance 720 / 720 600 / 600 240 / 240 Active Medications Acetaminophen (Tylenol) 1,000 mg PO Q8 [facility] Last Admin: 03/28/17 06:29 Dose: 1,000 mg Alendronate Sodium (Fosamax) 70 mg PO QWEEK [facility] Last Admin: 03/22/17 06:33 Dose: 70 mg Atenolol (Tenormin (Beta Kailee)) 50 mg PO DAILY [facility] Last Admin: 03/28/17 08:20 Dose: 50 mg Atorvastatin Calcium (Lipitor) 10 mg PO DAILY@2200 [facility] Last Admin: 03/27/17 21:20 Dose: 10 mg Bisacodyl (Dulcolax) 10 mg RECTAL .PRN X 1 PRN PRN Reason: Constipation Last Admin: 03/19/17 20:51 Dose: 10 mg Calcium/Vitamin D (Os-[place] 500mg + D) [facility] Last Admin: 03/28/17 08:21 Dose: 1 tablet Cholecalciferol (Vitamin D) 1,[facility] Last Admin: 03/28/17 08:21 Dose: 1,000 unit Fentanyl (Duragesic) 75 mcg TRANSDERM. Q72H [facility] Last Admin: 03/27/17 10:25 Dose: 75 mcg Gabapentin (Neurontin) 100 mg PO DAILY@0800 [facility] Last Admin: 03/28/17 08:22 Dose: 100 mg Gabapentin (Neurontin) 200 mg PO QHS [facility] Last Admin: 03/27/17 21:19 Dose: 200 mg Lisinopril (Zestril) 10 mg PO DAILY [facility] Last Admin: 03/28/17 08:20 Dose: 10 mg Magnesium Hydroxide (Milk Of Magnesia) 30 ml PO .PRN X 1 PRN PRN Reason: Constipation Last Admin: 03/18/17 22:48 Dose: 30 ml Methylprednisolone (Medrol Dosepak) 4 mg PO 0800,1200,2200 [facility] PRN Reason: Taper Stop: 03/30/17 08:59 Last Admin: 03/28/17 11:56 Dose: 4 mg Multivitamins/Minerals (Ocuvite) 1 [facility] Last Admin: 03/28/17 08:21 Dose: 1 tablet Nutritional Formula (Lactose Free) (Ensure Enlive) 120 ml PO 4X/DAY [facility] Last Admin: 03/28/17 08:26 Dose: Not Given Ondansetron HCl (Zofran Odt) 4 mg PO Q6H PRN PRN PRN Reason: NAUSEA/VOMITING Oxycodone HCl (Oxyir) 5 mg PO Q4H PRN PRN PRN Reason: MODERATE PAIN (4-5/10) Last Admin: 03/28/17 03:40 Dose: 5 mg Pantoprazole Sodium (Protonix) 40 mg PO DAILY [facility] Last Admin: 03/28/17 08:20 Dose: 40 mg Polyethylene Glycol (Miralax) 17 gm PO DAILY [facility] Last Admin: 03/28/17 08:20 Dose: 17 gm Senna/Docusate Sodium (Senokot-S, Hillary-Colace) 2 tablet PO BID [facility] Last Admin: 03/28/17 08:20 Dose: 2 tablet Assessment/Plan Active and Suspected Problems Hyperlipidemia (Acute) Back pain (Acute) Essential hypertension, benign (Acute) S/P laminectomy (Acute) Debility status post laminectomy bone graft lumbar spine. Goal of rehab is confucianism of prior level of functional independence. Plan: - Physical therapy for gait and balance - Occupational Therapy for ADLs - As needed analgesics - Bowel protocol - DVT prophylaxis: - HLD - continue home dose of statin - HTN - stable => continue home medications - Weight bearing status => WBAT, Lumbar brace on at all time when out of bed - Constipation - Miralax BID, and MOM in addition to Bowel regimen - Pre diabetes -> diet controlled, check fasting BS x 3days. - Post op pain - persistent pain will start patient on a low dose Fentanyl patch 12.5mcq/24hrs => pain is better will increase patch to 25mcq/24 hrs. for better control. Now has pain that radiate down both legs, is not tolerating the GPN will D/C it increase the Fentanyl patch to 50mcq and schedule the Tylenol 1,000mg Q8 hrs. Fentanyl patch increased to 75mcq/24 - Appointment with Surgeon concerning radiating pain -> GPN was continued and he started a Medrol dose pack.
[2017-03-28 20:39] VITALS: BP 128/73; PULSE 82; RESP 18; TEMP 36.9; O2SAT 99
[2017-03-28] MEDS: Atorvastatin Calcium 10 MG Tablet PO (20:42)
[2017-03-28] MEDS: Gabapentin 100 MG Capsule 200 MG PO (20:44)
[2017-03-29] MEDS: Alendronate Sodium 70 MG Tablet PO (05:13)
[2017-03-29] MEDS: oxyCODONE 5 MG Tablet PO ×4 (05:13→20:56)
[2017-03-29] MEDS: Acetaminophen 500 MG Tablet 1000 MG PO ×3 (05:13→20:57)
[2017-03-29] MEDS: Lisinopril 10 MG Tablet PO (08:19)
[2017-03-29] MEDS: Polyethylene Glycol 3350 17 GM PACKET PO (08:20)
[2017-03-29] MEDS: Pantoprazole Sodium 40 MG Tablet PO (08:20)
[2017-03-29] MEDS: MethylPREDNISolone DosePak 4 MG BOX PO ×2 (08:20→20:58)
[2017-03-29] MEDS: Calcium Carb/Vitamin D 1 TABLET Tablet PO (08:20)
[2017-03-29] MEDS: Atenolol 50 MG Tablet PO (08:20)
[2017-03-29] MEDS: Senna/Docusate Sodium 1 Tablet 2 TABLET PO (08:20)
[2017-03-29] MEDS: Gabapentin 100 MG Capsule PO (08:20)
[2017-03-29 08:34] VITALS: BP 127/67; PULSE 76; RESP 18; TEMP 36.4; O2SAT 96
[2017-03-29 19:35] VITALS: BP 119/49; PULSE 80; RESP 20; TEMP 36.9; O2SAT 94
[2017-03-29] MEDS: Gabapentin 100 MG Capsule 200 MG PO (20:57)
[2017-03-29] MEDS: Atorvastatin Calcium 10 MG Tablet PO (20:59)
[2017-03-30] MEDS: oxyCODONE 5 MG Tablet PO ×5 (00:57→21:48)
[2017-03-30] MEDS: Acetaminophen 500 MG Tablet 1000 MG PO ×3 (05:19→21:47)
[2017-03-30] MEDS: Gabapentin 100 MG Capsule PO (08:35)
[2017-03-30] MEDS: Calcium Carb/Vitamin D 1 TABLET Tablet PO (08:36)
[2017-03-30] MEDS: Pantoprazole Sodium 40 MG Tablet PO (08:37)
[2017-03-30] MEDS: Atenolol 50 MG Tablet PO (08:38)
[2017-03-30] MEDS: Senna/Docusate Sodium 1 Tablet 2 TABLET PO ×2 (08:38→21:47)
[2017-03-30] MEDS: Lisinopril 10 MG Tablet PO (08:38)
[2017-03-30] MEDS: MethylPREDNISolone DosePak 4 MG BOX PO (08:41)
[2017-03-30 08:48] VITALS: BP 124/58; PULSE 78; RESP 18; TEMP 36.7; O2SAT 96
[2017-03-30 19:00] VITALS: BP 113/53; PULSE 80; RESP 18; TEMP 36.9; O2SAT 94
[2017-03-30] MEDS: Gabapentin 100 MG Capsule 200 MG PO (21:47)
[2017-03-30] MEDS: Atorvastatin Calcium 10 MG Tablet PO (21:48)
[2017-03-31] MEDS: Acetaminophen 500 MG Tablet 1000 MG PO ×3 (05:28→20:53)
[2017-03-31] MEDS: oxyCODONE 5 MG Tablet PO ×4 (05:28→19:23)
[2017-03-31 07:44] VITALS: BP 114/72; PULSE 74; RESP 18; TEMP 36.8; O2SAT 98
[2017-03-31] MEDS: Atenolol 50 MG Tablet PO (07:50)
[2017-03-31] MEDS: Lisinopril 10 MG Tablet PO (07:50)
[2017-03-31] MEDS: Pantoprazole Sodium 40 MG Tablet PO (07:50)
[2017-03-31] MEDS: Senna/Docusate Sodium 1 Tablet 2 TABLET PO ×2 (07:50→20:52)
[2017-03-31] MEDS: Gabapentin 100 MG Capsule PO (07:51)
[2017-03-31] MEDS: Calcium Carb/Vitamin D 1 TABLET Tablet PO (07:51)
--- NOTE | 2017-03-31 09:15 | CASEMGMT ---
Team meeting held on this day. Patient present as well as patient family. Collaborating with team and patient, discharge date has been set for 04/02/17. Patient plans to discharge home with spouse and to follow up with surgeon on therapy recommendations. Patient is identifying a need for a walker to be set up at time of discharge. Patient does not have a preference of Narrative, [employer] to be utilized. Patient family plans to provide transportation home for patient at time of discharge. Support given. Telephone call to Lashaun Shoemaker. This adoption social worker making referral for front wheeled walker. Order faxed. Proposed discharge date: 04/02/17 PLAN: Discharge home with spouse. Gisela DELA CRUZ, CRACKING UNIT OPERATOR
--- NOTE | 2017-03-31 11:00 | PCM.PN.NEU ---
Patient Problems: Active and Suspected Problems Hyperlipidemia (Acute) Back pain (Acute) Essential hypertension, benign (Acute) S/P laminectomy (Acute) Subjective: Staffed in Team meeting. and daughter at bedside. Questions answered. With Physical therapy, she is ambulating greater than 360ft with wheel walker at standby assist. She is able to ambulate up and down 5 steps at standby assist. With Occupational therapy she is set-up and supervise for personal care. She is able to get her socks and shoes on, pull her pants over her feet using adaptive equipment to do so. She is standby assist for transfers and to stand and pivot. With nursing no issues. She is able to get her back brace on and off by herself. The patient is doing well, from the teams standpoint, she will be discharged on Friday the . She has an appointment with her surgeon on 04/03, at that time she will inquire about outpatient Physical therapy. She will be made MOD I today in anticipation of her discharge on Friday. - Physical Exam General: Alert, Oriented x3, Cooperative HEENT: Atraumatic, PERRLA, EOMI, Normocephalic Neck: Supple, No JVD, Negative Carotid Bruits Lungs: Clear to auscultation, Normal air movement Cardiovascular: Regular rate, No murmurs Abdomen: Bowel Sounds Present, Soft, Non Tender Extremities: No edema, Capillary Refill Less than 3 Seconds Skin: No rashes, No breakdown Musculoskeletal: No Tenderness to Palpation of Joints or Extremities Neurological: Cranial nerves II-XII grossly intact Psych/Mental Status: Normal Affect, Appropriate Vital Signs Temp Pulse Resp BP Pulse Ox 98.2 F 74 18 114/72 98 03/31/17 07:44 03/31/17 07:44 03/31/17 07:44 03/31/17 07:44 03/31/17 07:44 Oxygen Delivery Method Room Air Weight: 58.8 kg Body Mass Index (BMI) 26.4 Intake and Output for Last 24 Hours 03/29/17 03/30/17 03/31/17 23:59 23:59 23:59 Intake Total 720 / 720 240 / 240 360 / 360 Balance 720 / 720 240 / 240 360 / 360 Active Medications Acetaminophen (Tylenol) 1,000 mg PO Q8 [facility] Last Admin: 03/31/17 05:28 Dose: 1,000 mg Alendronate Sodium (Fosamax) 70 mg PO QWEEK [facility] Last Admin: 03/29/17 05:13 Dose: 70 mg Atenolol (Tenormin (Beta Kailee)) 50 mg PO DAILY [facility] Last Admin: 03/31/17 07:50 Dose: 50 mg Atorvastatin Calcium (Lipitor) 10 mg PO DAILY@2200 [facility] Last Admin: 03/30/17 21:48 Dose: 10 mg Bisacodyl (Dulcolax) 10 mg RECTAL .PRN X 1 PRN PRN Reason: Constipation Last Admin: 03/19/17 20:51 Dose: 10 mg Calcium/Vitamin D (Os-[place] 500mg + D) [facility] Last Admin: 03/31/17 07:51 Dose: 1 tablet Cholecalciferol (Vitamin D) 1,000 [facility] Last Admin: 03/31/17 07:51 Dose: 1,000 unit Fentanyl (Duragesic) 75 mcg TRANSDERM. Q72H [facility] Last Admin: 03/30/17 10:16 Dose: 75 mcg Gabapentin (Neurontin) 100 mg PO DAILY@0800 [facility] Last Admin: 03/31/17 07:51 Dose: 100 mg Gabapentin (Neurontin) 200 mg PO QHS [facility] Last Admin: 03/30/17 21:47 Dose: 200 mg Lisinopril (Zestril) 10 mg PO DAILY [facility] Last Admin: 03/31/17 07:50 Dose: 10 mg Magnesium Hydroxide (Milk Of Magnesia) 30 ml PO .PRN X 1 PRN PRN Reason: Constipation Last Admin: 03/18/17 22:48 Dose: 30 ml Multivitamins/Minerals (Ocuvite) 1 tablet [facility] Last Admin: 03/31/17 07:51 Dose: 1 tablet Nutritional Formula (Lactose Free) (Ensure Enlive) 120 ml PO 4X/DAY [facility] Last Admin: 03/31/17 07:51 Dose: 120 ml Ondansetron HCl (Zofran Odt) 4 mg PO Q6H PRN PRN PRN Reason: NAUSEA/VOMITING Oxycodone HCl (Oxyir) 5 mg PO Q4H PRN PRN PRN Reason: MODERATE PAIN (4-5/10) Last Admin: 01/29/18 10:49 Dose: 5 mg Pantoprazole Sodium (Protonix) 40 mg PO DAILY [facility] Last Admin: 03/31/17 07:50 Dose: 40 mg Polyethylene Glycol (Miralax) 17 gm PO DAILY [facility] Last Admin: 03/31/17 07:52 Dose: Not Given Senna/Docusate Sodium (Senokot-S, Hillary-Colace) 2 tablet PO BID [facility] Last Admin: 03/31/17 07:50 Dose: 2 tablet Assessment/Plan Active and Suspected Problems Hyperlipidemia (Acute) Back pain (Acute) Essential hypertension, benign (Acute) S/P laminectomy (Acute) Debility status post laminectomy bone graft lumbar spine. Goal of rehab is bahai of prior level of functional independence. Plan: - Physical therapy for gait and balance - Occupational Therapy for ADLs - As needed analgesics - Bowel protocol - DVT prophylaxis: - HLD - continue home dose of statin - HTN - stable => continue home medications - Weight bearing status => WBAT, Lumbar brace on at all time when out of bed - Constipation - Miralax BID, and MOM in addition to Bowel regimen - Pre diabetes -> diet controlled, check fasting BS x 3days. - Post op pain - persistent pain will start patient on a low dose Fentanyl patch 12.5mcq/24hrs => pain is better will increase patch to 25mcq/24 hrs. for better control. Now has pain that radiate down both legs, is not tolerating the GPN will D/C it increase the Fentanyl patch to 50mcq and schedule the Tylenol 1,000mg Q8 hrs. Fentanyl patch increased to 75mcq/24 - Appointment with Surgeon concerning radiating pain -> GPN was continued and he started a Medrol dose pack. Pain is improving will up the GPN to 200mg BID. - Patient will be discharge home on Sunday 04/02, made MOD I on 03/31
--- NOTE | 2017-03-31 11:12 | PN.NEURO_ITS ---
Patient Problems: Active and Suspected Problems Hyperlipidemia (Acute) Back pain (Acute) Essential hypertension, benign (Acute) S/P laminectomy (Acute) Subjective: Staffed in Team meeting. and daughter at bedside. Questions answered. With Physical therapy, she is ambulating greater than 360ft with wheel walker at standby assist. She is able to ambulate up and down 5 steps at standby assist. With Occupational therapy she is set-up and supervise for personal care. She is able to get her socks and shoes on, pull her pants over her feet using adaptive equipment to do so. She is standby assist for transfers and to stand and pivot. With nursing no issues. She is able to get her back brace on and off by herself. The patient is doing well, from the teams standpoint, she will be discharged on Friday the . She has an appointment with her surgeon on 04/03, at that time she will inquire about outpatient Physical therapy. She will be made MOD I today in anticipation of her discharge on Friday. - Physical Exam General: Alert, Oriented x3, Cooperative HEENT: Atraumatic, PERRLA, EOMI, Normocephalic Neck: Supple, No JVD, Negative Carotid Bruits Lungs: Clear to auscultation, Normal air movement Cardiovascular: Regular rate, No murmurs Abdomen: Bowel Sounds Present, Soft, Non Tender Extremities: No edema, Capillary Refill Less than 3 Seconds Skin: No rashes, No breakdown Musculoskeletal: No Tenderness to Palpation of Joints or Extremities Neurological: Cranial nerves II-XII grossly intact Psych/Mental Status: Normal Affect, Appropriate Vital Signs Temp Pulse Resp BP Pulse Ox 98.2 F 74 18 114/72 98 03/31/17 07:44 03/31/17 07:44 03/31/17 07:44 03/31/17 07:44 03/31/17 07:44 Oxygen Delivery Method Room Air Weight: 58.8 kg Body Mass Index (BMI) 26.4 Intake and Output for Last 24 Hours 03/29/17 03/30/17 03/31/17 23:59 23:59 23:59 Intake Total 720 / 720 240 / 240 360 / 360 Balance 720 / 720 240 / 240 360 / 360 Active Medications Acetaminophen (Tylenol) 1,000 mg PO Q8 [facility] Last Admin: 03/31/17 05:28 Dose: 1,000 mg Alendronate Sodium (Fosamax) 70 mg PO QWEEK [facility] Last Admin: 03/29/17 05:13 Dose: 70 mg Atenolol (Tenormin (Beta Kailee)) 50 mg PO DAILY [facility] Last Admin: 03/31/17 07:50 Dose: 50 mg Atorvastatin Calcium (Lipitor) 10 mg PO DAILY@2200 [facility] Last Admin: 03/30/17 21:48 Dose: 10 mg Bisacodyl (Dulcolax) 10 mg RECTAL .PRN X 1 PRN PRN Reason: Constipation Last Admin: 03/19/17 20:51 Dose: 10 mg Calcium/Vitamin D (Os-[place] 500mg + D) [facility] Admin: 03/31/17 07:51 Dose: 1 tablet Cholecalciferol (Vitamin D) [facility] Last Admin: 03/31/17 07:51 Dose: 1,000 unit Fentanyl (Duragesic) 75 mcg TRANSDERM. Q72H [facility] Last Admin: 03/30/17 10:16 Dose: 75 mcg Gabapentin (Neurontin) 100 mg PO DAILY@0800 [facility] Last Admin: 03/31/17 07:51 Dose: 100 mg Gabapentin (Neurontin) 200 mg PO QHS [facility] Last Admin: 03/30/17 21:47 Dose: 200 mg Lisinopril (Zestril) 10 mg PO DAILY [facility] Last Admin: 03/31/17 07:50 Dose: 10 mg Magnesium Hydroxide (Milk Of Magnesia) 30 ml PO .PRN X 1 PRN PRN Reason: Constipation Last Admin: 03/18/17 22:48 Dose: 30 ml Multivitamins/Minerals (Ocuvite) [facility] Last Admin: 03/31/17 07:51 Dose: 1 tablet Nutritional Formula (Lactose Free) (Ensure Enlive) 120 ml PO 4X/DAY [facility] Last Admin: 03/31/17 07:51 Dose: 120 ml Ondansetron HCl (Zofran Odt) 4 mg PO Q6H PRN PRN PRN Reason: NAUSEA/VOMITING Oxycodone HCl (Oxyir) 5 mg PO Q4H PRN PRN PRN Reason: MODERATE PAIN (4-5/10) Last Admin: 01/29/18 10:49 Dose: 5 mg Pantoprazole Sodium (Protonix) 40 mg PO DAILY [facility] Last Admin: 03/31/17 07:50 Dose: 40 mg Polyethylene Glycol (Miralax) 17 gm PO DAILY [facility] Last Admin: 03/31/17 07:52 Dose: Not Given Senna/Docusate Sodium (Senokot-S, Hillary-Colace) 2 tablet PO BID [facility] Last Admin: 03/31/17 07:50 Dose: 2 tablet Assessment/Plan Active and Suspected Problems Hyperlipidemia (Acute) Back pain (Acute) Essential hypertension, benign (Acute) S/P laminectomy (Acute) Debility status post laminectomy bone graft lumbar spine. Goal of rehab is mandaen of prior level of functional independence. Plan: - Physical therapy for gait and balance - Occupational Therapy for ADLs - As needed analgesics - Bowel protocol - DVT prophylaxis: - HLD - continue home dose of statin - HTN - stable => continue home medications - Weight bearing status => WBAT, Lumbar brace on at all time when out of bed - Constipation - Miralax BID, and MOM in addition to Bowel regimen - Pre diabetes -> diet controlled, check fasting BS x 3days. - Post op pain - persistent pain will start patient on a low dose Fentanyl patch 12.5mcq/24hrs => pain is better will increase patch to 25mcq/24 hrs. for better control. Now has pain that radiate down both legs, is not tolerating the GPN will D/C it increase the Fentanyl patch to 50mcq and schedule the Tylenol 1, 000mg Q8 hrs. Fentanyl patch increased to 75mcq/24 - Appointment with Surgeon concerning radiating pain -> GPN was continued and he started a Medrol dose pack. Pain is improving will up the GPN to 200mg BID. - Patient will be discharge home on Sunday 04/02, made MOD I on 03/31
--- NOTE | 2017-03-31 11:16 | NURSING ---
This nurse call Dr Oral Alvarado office to clarify pt's appointment time. The patient dose not have an appointment on April 03 since they seen her on March 25. Spoke with Sheila [phone]
--- NOTE | 2017-03-31 12:51 | NURSING ---
left message for [facility] surgical office secretary for dr rosario about prophylaxis medication management if it can be started and to return call back to unit.
--- NOTE | 2017-03-31 12:58 | NURSING ---
patient is mod i with walker, gait steady.
--- NOTE | 2017-03-31 16:25 | PCM.PN.HOSP ---
Patient Problems: Active and Suspected Problems Hyperlipidemia (Acute) Back pain (Acute) Essential hypertension, benign (Acute) S/P laminectomy (Acute) Subjective: Patient is a 77-year-old lady admitted to the inpatient rehab unit following laminectomy at [facility] on 03/14/16 Objective: GENERAL: cooperative HEENT: Clear conjunctiva, NECK; supple, normal thyroid, CHEST: Diminished to auscultation bilaterally, HEART: Regular S1 S2, no audible murmurs ABDOMEN: soft, non-tender, normoactive bowel sounds, RECTAL: deferred EXTREMITIES: No edema, no clubbing, no cyanosis. WOOD MACHINE CARVER: Awake, no lateralizing signs. Vitals/I&O's: Vital Signs Temp Pulse Resp BP Pulse Ox 98.2 F 74 18 114/72 98 03/31/17 07:44 03/31/17 07:44 03/31/17 07:44 03/31/17 07:44 03/31/17 07:44 Oxygen Delivery Method Room Air Weight: 58.8 kg Body Mass Index (BMI) 26.4 Intake and Output for Last 24 Hours 03/29/17 03/30/17 03/31/17 23:59 23:59 23:59 Intake Total 720 / 720 240 / 240 360 / 360 Balance 720 / 720 240 / 240 360 / 360 Current Medications Acetaminophen (Tylenol) 1,000 mg PO Q8 [facility] Last Admin: 03/31/17 13:03 Dose: 1,000 mg Alendronate Sodium (Fosamax) 70 mg PO QWEEK [facility] Last Admin: 03/29/17 05:13 Dose: 70 mg Atenolol (Tenormin (Beta Kailee)) 50 mg PO DAILY [facility] Last Admin: 03/31/17 07:50 Dose: 50 mg Atorvastatin Calcium (Lipitor) 10 mg PO DAILY@2200 [facility] Last Admin: 03/30/17 21:48 Dose: 10 mg Bisacodyl (Dulcolax) 10 mg RECTAL .PRN X 1 PRN PRN Reason: Constipation Last Admin: 03/19/17 20:51 Dose: 10 mg Calcium/Vitamin D (Os-[place] 500mg + D) [facility] Last Admin: 03/31/17 07:51 Dose: 1 tablet Cholecalciferol (Vitamin D) [facility] Last Admin: 03/31/17 07:51 Dose: 1,000 unit Fentanyl (Duragesic) 75 mcg TRANSDERM. Q72H [facility] Last Admin: 03/30/17 10:16 Dose: 75 mcg Gabapentin (Neurontin) 100 mg PO DAILY@0800 [facility] Last Admin: 03/31/17 07:51 Dose: 100 mg Gabapentin (Neurontin) 200 mg PO QHS [facility] Last Admin: 03/30/17 21:47 Dose: 200 mg Lisinopril (Zestril) 10 mg PO DAILY [facility] Last Admin: 03/31/17 07:50 Dose: 10 mg Magnesium Hydroxide (Milk Of Magnesia) 30 ml PO .PRN X 1 PRN PRN Reason: Constipation Last Admin: 03/18/17 22:48 Dose: 30 ml Multivitamins/Minerals (Ocuvite) [facility] Last Admin: 03/31/17 07:51 Dose: 1 tablet Nutritional Formula (Lactose Free) (Ensure Enlive) 120 ml PO 4X/DAY [facility] Last Admin: 03/31/17 13:03 Dose: 120 ml Ondansetron HCl (Zofran Odt) 4 mg PO Q6H PRN PRN PRN Reason: NAUSEA/VOMITING Oxycodone HCl (Oxyir) 5 mg PO Q4H PRN PRN PRN Reason: MODERATE PAIN (4-5/10) Last Admin: 03/31/17 15:18 Dose: 5 mg Pantoprazole Sodium (Protonix) 40 mg PO DAILY [facility] Last Admin: 03/31/17 07:50 Dose: 40 mg Polyethylene Glycol (Miralax) 17 gm PO DAILY [facility] Last Admin: 03/31/17 07:52 Dose: Not Given Senna/Docusate Sodium (Senokot-S, Hillary-Colace) 2 tablet PO BID [facility] Last Admin: 03/31/17 07:50 Dose: 2 tablet Assessment/Plan Active and Suspected Problems Hyperlipidemia (Acute) Back pain (Acute) Essential hypertension, benign (Acute) S/P laminectomy (Acute) Patient is a 77-year-old lady admitted to the inpatient rehab unit following laminectomy at [facility] on 03/14/16 1. Lumbar spondylolisthesis with lumbar spinal stenosis S/P laminectomy bone graft lumbar spine on 03/14/16 2. Hypertension-blood pressure controlled, home medications continued with dose adjustment as needed 3. Dyslipidemia-patient is on statin therapy, continued at home dose 4. Osteoporosis patient on alendronate 5. Code Visit Inpatient E&M: 34164 Subs Hosp L2
[2017-03-31 19:35] VITALS: BP 110/58; PULSE 83; RESP 18; TEMP 36.3; O2SAT 96
[2017-03-31] MEDS: Gabapentin 100 MG Capsule 200 MG PO (20:52)
[2017-03-31] MEDS: Atorvastatin Calcium 10 MG Tablet PO (20:54)
[2017-04-01] MEDS: Acetaminophen 500 MG Tablet 1000 MG PO ×3 (05:21→22:15)
[2017-04-01] MEDS: oxyCODONE 5 MG Tablet PO ×4 (06:09→20:43)
[2017-04-01] MEDS: Senna/Docusate Sodium 1 Tablet 2 TABLET PO (07:58)
[2017-04-01] MEDS: Calcium Carb/Vitamin D 1 TABLET Tablet PO (07:58)
[2017-04-01] MEDS: Lisinopril 10 MG Tablet PO (07:58)
[2017-04-01] MEDS: Atenolol 50 MG Tablet PO (07:58)
[2017-04-01] MEDS: Pantoprazole Sodium 40 MG Tablet PO (07:58)
[2017-04-01] MEDS: Gabapentin 100 MG Capsule PO (07:59)
--- NOTE | 2017-04-01 09:23 | PCM.PN.NEU ---
Patient Problems: Active and Suspected Problems Hyperlipidemia (Acute) Back pain (Acute) Essential hypertension, benign (Acute) S/P laminectomy (Acute) Subjective: Patient seen and examined. No acute events over night. Was made MOD I yesterday in preparation for discharge home on Friday afternoon, has been doing well no issues. Pain is well tolerated on current medications. - Physical Exam General: Alert, Oriented x3, Cooperative HEENT: Atraumatic, PERRLA, EOMI, Normocephalic Neck: Supple, No JVD, Negative Carotid Bruits Lungs: Clear to auscultation, Normal air movement Cardiovascular: Regular rate, No murmurs Abdomen: Bowel Sounds Present, Soft, Non Tender Extremities: No edema, Capillary Refill Less than 3 Seconds Skin: No rashes, No breakdown Musculoskeletal: No Tenderness to Palpation of Joints or Extremities Neurological: Cranial nerves II-XII grossly intact Psych/Mental Status: Normal Affect, Appropriate Vital Signs Temp Pulse Resp BP Pulse Ox 97.4 F L 83 18 110/58 L 96 03/31/17 19:35 03/31/17 19:35 03/31/17 19:35 03/31/17 19:35 03/31/17 19:35 Oxygen Delivery Method Room Air Weight: 58.8 kg Body Mass Index (BMI) 26.4 Intake and Output for Last 24 Hours 03/30/17 03/31/17 04/01/17 23:59 23:59 23:59 Intake Total 240 / 240 360 / 360 240 / 240 Balance 240 / 240 360 / 360 240 / 240 Active Medications Acetaminophen (Tylenol) 1,000 mg PO Q8 [facility] Last Admin: 04/01/17 05:21 Dose: 1,000 mg Alendronate Sodium (Fosamax) 70 mg PO QWEEK [facility] Last Admin: 03/29/17 05:13 Dose: 70 mg Atenolol (Tenormin (Beta Kailee)) 50 mg PO DAILY [facility] Last Admin: 04/01/17 07:58 Dose: 50 mg Atorvastatin Calcium (Lipitor) 10 mg PO DAILY@2200 [facility] Last Admin: 03/31/17 20:54 Dose: 10 mg Bisacodyl (Dulcolax) 10 mg RECTAL .PRN X 1 PRN PRN Reason: Constipation Last Admin: 03/19/17 20:51 Dose: 10 mg Calcium/Vitamin D (Os-[place] 500mg + D) [facility] Last Admin: 04/01/17 07:58 Dose: 1 tablet Cholecalciferol (Vitamin D) [facility] Last Admin: 04/01/17 07:58 Dose: 1,000 unit Fentanyl (Duragesic) 75 mcg TRANSDERM. Q72H [facility] Last Admin: 03/30/17 10:16 Dose: 75 mcg Gabapentin (Neurontin) 100 mg PO DAILY@0800 [facility] Last Admin: 04/01/17 07:59 Dose: 100 mg Gabapentin (Neurontin) 200 mg PO QHS [facility] Last Admin: 03/31/17 20:52 Dose: 200 mg Lisinopril (Zestril) 10 mg PO DAILY [facility] Last Admin: 04/01/17 07:58 Dose: 10 mg Magnesium Hydroxide (Milk Of Magnesia) 30 ml PO .PRN X 1 PRN PRN Reason: Constipation Last Admin: 03/18/17 22:48 Dose: 30 ml Multivitamins/Minerals (Ocuvite) [facility] Last Admin: 04/01/17 07:58 Dose: 1 tablet Nutritional Formula (Lactose Free) (Ensure Enlive) 120 ml PO 4X/DAY [facility] Last Admin: 04/01/17 08:00 Dose: 120 ml Ondansetron HCl (Zofran Odt) 4 mg PO Q6H PRN PRN PRN Reason: NAUSEA/VOMITING Oxycodone HCl (Oxyir) 5 mg PO Q4H PRN PRN PRN Reason: MODERATE PAIN (4-5/10) Last Admin: 04/01/17 06:09 Dose: 5 mg Pantoprazole Sodium (Protonix) 40 mg PO DAILY [facility] Last Admin: 04/01/17 07:58 Dose: 40 mg Polyethylene Glycol (Miralax) 17 gm PO DAILY [facility] Last Admin: 04/01/17 08:01 Dose: Not Given Senna/Docusate Sodium (Senokot-S, Hillary-Colace) 2 tablet PO BID [facility] Last Admin: 04/01/17 07:58 Dose: 2 tablet Assessment/Plan Active and Suspected Problems Hyperlipidemia (Acute) Back pain (Acute) Essential hypertension, benign (Acute) S/P laminectomy (Acute) Debility status post laminectomy bone graft lumbar spine. Goal of rehab is orthodoxy of prior level of functional independence. Plan: - Physical therapy for gait and balance - Occupational Therapy for ADLs - As needed analgesics - Bowel protocol - DVT prophylaxis: - HLD - continue home dose of statin - HTN - stable => continue home medications - Weight bearing status => WBAT, Lumbar brace on at all time when out of bed - Constipation - Miralax BID, and MOM in addition to Bowel regimen - Pre diabetes -> diet controlled, check fasting BS x 3days. - Post op pain - persistent pain will start patient on a low dose Fentanyl patch 12.5mcq/24hrs => pain is better will increase patch to 25mcq/24 hrs. for better control. Now has pain that radiate down both legs, is not tolerating the GPN will D/C it increase the Fentanyl patch to 50mcq and schedule the Tylenol 1,000mg Q8 hrs. Fentanyl patch increased to 75mcq/24 - Appointment with Surgeon concerning radiating pain -> GPN was continued and he started a Medrol dose pack. Pain is improving will up the GPN to 200mg BID. - Patient will be discharge home on Sunday 04/02, made MOD I on 03/31
[2017-04-01 09:37] VITALS: BP 124/50; PULSE 74; RESP 16; TEMP 36.9; O2SAT 93
--- NOTE | 2017-04-01 13:07 | CASEMGMT ---
Social Work Nursing staff communicating to this social security benefits interviewer that patient will not be seeing surgeon on 04/04/17 and that the surgeon is recommending for patient to have continued therapy through Outpatient PT services. Spoke with patient in room and communicated above information. Patient is agreeable to outpatient PT and is requesting for services to be set up through [facility]. Patient aware that order will be faxed and then [facility] will call to set up appointment. Support given. Outpatient PT order faxed to [facility]. 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
[2017-04-01 22:00] VITALS: BP 120/78; PULSE 80; RESP 17; TEMP 36.7; O2SAT 96
[2017-04-01] MEDS: Atorvastatin Calcium 10 MG Tablet PO (22:15)
[2017-04-01] MEDS: Gabapentin 100 MG Capsule 200 MG PO (22:15)
[2017-04-02] MEDS: oxyCODONE 5 MG Tablet PO ×2 (03:53→08:48)
[2017-04-02] MEDS: Acetaminophen 500 MG Tablet 1000 MG PO (06:50)
[2017-04-02] MEDS: Atenolol 50 MG Tablet PO (08:48)
[2017-04-02] MEDS: Senna/Docusate Sodium 1 Tablet 2 TABLET PO (08:48)
[2017-04-02] MEDS: Pantoprazole Sodium 40 MG Tablet PO (08:48)
[2017-04-02] MEDS: Calcium Carb/Vitamin D 1 TABLET Tablet PO (08:49)
[2017-04-02] MEDS: Gabapentin 100 MG Capsule PO (08:49)
[2017-04-02] MEDS: Lisinopril 10 MG Tablet PO (08:49)
[2017-04-02] MEDS: Polyethylene Glycol 3350 17 GM PACKET PO (08:54)
--- NOTE | 2017-04-02 09:29 | DS.PCM_ITS ---
Rehab Discharge Summary DATE OF ADMISSION: 03/18/17 DATE OF DISCHARGE: 04/02/17 - Rehab Diagnosis Laminectomy Discharge Diet: No Restrictions Discharge Activity: Return to Normal Activity - May return to normal activity as tolerated, once cleared by your Surgeon, May not drive while taking narcotic pain medications., May Shower, Use Walker, - - Do not soak in a Tub Bath until cleared by your Surgeon Weight Bearing Status: Weight bearing as tolerated Call your doctor if your incision/area has: Increased Pain/ Swelling, Increased Redness, Foul Smelling Discharge, Swelling at the incision site Call your doctor if you observe: Fever of 101 or Higher, Coldness, Increased Pain, Numbness or Tingling, Change in Color, Inability to urinate, Inability to have a bowel movement, Using more than one pad per hour, Shortness of breath, Dizziness, Fainting spells, Swelling in the ankles, Chest pain, Prolonged hiccoughing, Increased palpitations (irregular heartbeat), Calf discomfort, Uncontrolled pain Home Medications: Medications to take at Discharge Alendronate Sodium [Fosamax] 70 mg PO QWEEK 01/09/17 Atenolol 50 mg PO DAILY 01/09/17 Calcium Carbonate/Vitamin D3 [Calcium 600-Vit D3 200 Tablet] 1 each PO DAILY 11/17 Lisinopril [Zestril] 10 mg PO DAILY 01/09/17 Lovastatin [Mevacor] 40 mg PO DAILY 01/09/17 Omeprazole 40 mg PO DAILY 01/09/17 Vit A/Vit C/Vit E/Zinc/Copper [Preservision Areds Softgel] 1 each PO DAILY 01/09 Cholecalciferol (VIT D3) [Vitamin D3] 1,000 unit PO BID 03/18/17 Naloxegol Oxalate [Movantik] 25 mg PO QODAY 03/18/17 Acetaminophen [Tylenol] 1,000 mg PO Q8 tablet 04/02/17 Fentanyl [Duragesic] 75 mcg TRANSDERM. Q72H #3 patch 04/02/17 Gabapentin [Neurontin] 100 mg PO DAILY@0800 #30 cap 04/02/17 Gabapentin [Neurontin] 200 mg PO QHS #60 cap 04/02/17 Following Prescrptions Were Given to Patient: Fentanyl [Duragesic] 75 mcg TRANSDERM. Q72H #3 patch Gabapentin [Neurontin] 100 mg PO DAILY@0800 #30 cap Gabapentin [Neurontin] 200 mg PO QHS #60 cap Primary Care Physician: Kolby Moncada MD [Primary Care Provider] - Please Follow Up With: Physical THerapy - [facility] Please Follow Up With: Dr Moncada Please Follow Up With: abraham Disposition: Home with Home Health - Outpatient Physical Therapy Minutes spent on discharge:: 40 Patient Condition:: Good Rehab Course The patient is a 77 year old right-handed female who was admitted to the rehab unit for rehabilitation after a Laminectomy on 03/14/17 at [facility] by Dr. Oscar Rosas, Surgery was uncomplicated. She has a history of Lumbar spondylolisthesis, spinal stenosis, HTN, HLD, GERD, Hiatal hernia, Arthritis, and Osteopenia. This was an elective surgery, the patient has had increasing amount of pain, over the last few months, difficulty sleeping 2/2 pain and stress incontinence and shortness of breath when ambulate because of the jarring causing pain. She lives with her in a two story house. the second floor is not completed, and they live on the first floor, they have 1 step to get into the house from the garage and 2 steps to get in through the front door. She was previously completely functionally independent and is admitted to the rehab unit in order to restore her previous level of functional independence. Was on a baby ASA prior to the surgery, and has been using a cane to ambulate the last few months.With Physical therapy, she is ambulating greater than 360ft with wheel walker at standby assist. She is able to ambulate up and down 5 steps at standby assist. With Occupational therapy she is set-up and supervise for personal care. She is able to get her socks and shoes on, pull her pants over her feet using adaptive equipment to do so. She is standby assist for transfers and to stand and pivot. With nursing no issues. She is able to get her back brace on and off by herself. The patient is doing well, from the teams standpoint, she will be discharged on Friday the . She has an appointment with her surgeon on 04/03, we will arrange outpatient physical therapy for her on discharge. Meaningful Use Info Meaningful Use Diagnoses (Choose all that apply): None applicable
--- NOTE | 2017-04-02 09:29 | PCM.DC ---
- Discharge Diagnoses Current Active Problems: Current Active and Chronic Problems Hyperlipidemia (Acute) Back pain (Acute) Essential hypertension, benign (Acute) S/P laminectomy (Acute) Reason(s) for Visit for Discharge Instructions: Laminectomy You will use the following diet at home:: Regular Your food should be the consistency of: Regular Your liquids should be the consistency of: Regular/Thin Discharge Activity: Return to Normal Activity - May return to normal activity as tolerated, once cleared by your Surgeon, May not drive while taking narcotic pain medications., May Shower, Use Walker, - - Do not soak in a Tub Bath until cleared by your Surgeon Weight Bearing Status: Weight bearing as tolerated Call your doctor if your incision/area has: Increased Pain/ Swelling, Increased Redness, Foul Smelling Discharge, Swelling at the incision site Call your doctor if you observe: Fever of 101 or Higher, Coldness, Increased Pain, Numbness or Tingling, Change in Color, Inability to urinate, Inability to have a bowel movement, Using more than one pad per hour, Shortness of breath, Dizziness, Fainting spells, Swelling in the ankles, Chest pain, Prolonged hiccoughing, Increased palpitations (irregular heartbeat), Calf discomfort, Uncontrolled pain Allergies/Adverse Reactions: Allergies ciprofloxacin [From Cipro] Allergy (Verified 01/09/17 14:22) Unknown ciprofloxacin HCl [From Cipro] Allergy (Verified 01/09/17 14:22) Unknown codeine Adverse Reaction (Verified 01/09/17 14:22) Other Medications to take at Discharge Alendronate Sodium [Fosamax] 70 mg PO QWEEK 01/09/17 Atenolol 50 mg PO DAILY 01/09/17 Calcium Carbonate/Vitamin D3 [Calcium 600-Vit D3 200 Tablet] 1 each PO DAILY 01/09/17 Lisinopril [Zestril] 10 mg PO DAILY 01/09/17 Lovastatin [Mevacor] 40 mg PO DAILY 01/09/17 Omeprazole 40 mg PO DAILY 01/09/17 Vit A/Vit C/Vit E/Zinc/Copper [Preservision Areds Softgel] 1 each PO DAILY 01/09/17 Cholecalciferol (VIT D3) [Vitamin D3] 1,000 unit PO BID 03/18/17 Naloxegol Oxalate [Movantik] 25 mg PO QODAY 03/18/17 Acetaminophen [Tylenol] 1,000 mg PO Q8 tablet 04/02/17 Fentanyl [Duragesic] 75 mcg TRANSDERM. Q72H #3 patch 04/02/17 Gabapentin [Neurontin] 100 mg PO DAILY@0800 #30 cap 04/02/17 Gabapentin [Neurontin] 200 mg PO QHS #60 cap 04/02/17 The following prescriptions were given: Fentanyl [Duragesic] 75 mcg TRANSDERM. Q72H #3 patch Gabapentin [Neurontin] 100 mg PO DAILY@0800 #30 cap Gabapentin [Neurontin] 200 mg PO QHS #60 cap Primary Care Physician: Kolby Moncada MD [Primary Care Provider] - Please Follow Up With: Physical [facility]erap[facility] - [facility] Please Follow Up With: Dr Moncada Please Follow Up With: abraham Proposed Discharge Date: 04/02/17
[2017-04-02 09:45] VITALS: BP 111/66; PULSE 81; RESP 17; TEMP 36.7; O2SAT 94
--- NOTE | 2017-04-02 10:59 | PCM.PN.HOSP ---
Patient Problems: Active and Suspected Problems Hyperlipidemia (Acute) Back pain (Acute) Essential hypertension, benign (Acute) S/P laminectomy (Acute) Subjective: Patient seen complains of some discomfort asking for pain medications prior to her discharge Objective: GENERAL: cooperative HEENT: Clear conjunctiva, NECK; supple, normal thyroid, CHEST: Diminished to auscultation bilaterally, HEART: Regular S1 S2, no audible murmurs ABDOMEN: soft, non-tender, normoactive bowel sounds, RECTAL: deferred EXTREMITIES: No edema, no clubbing, no cyanosis. 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 Vitals/I&O's: Vital Signs Temp Pulse Resp BP Pulse Ox 98.1 F 81 17 111/66 94 04/02/17 09:45 04/02/17 09:45 04/02/17 09:45 04/02/17 09:45 04/02/17 09:45 Oxygen Delivery Method Room Air Weight: 58.4 kg Body Mass Index (BMI) 26.4 Intake and Output for Last 24 Hours 03/31/17 04/01/17 04/02/17 23:59 23:59 23:59 Intake Total 360 / 360 920 / 920 320 / 320 Balance 360 / 360 920 / 920 320 / 320 Current Medications Acetaminophen (Tylenol) 1,000 mg PO Q8 [facility] Last Admin: 04/02/17 06:50 Dose: 1,000 mg Alendronate Sodium (Fosamax) 70 mg PO QWEEK [facility] Last Admin: 03/29/17 05:13 Dose: 70 mg Atenolol (Tenormin (Beta Kailee)) 50 mg PO DAILY [facility] Last Admin: 04/02/17 08:48 Dose: 50 mg Atorvastatin Calcium (Lipitor) 10 mg PO DAILY@2200 [facility] Last Admin: 04/01/17 22:15 Dose: 10 mg Bisacodyl (Dulcolax) 10 mg RECTAL .PRN X 1 PRN PRN Reason: Constipation Last Admin: 03/19/17 20:51 Dose: 10 mg Calcium/Vitamin D (Os-[place] 500mg + D) 1 tablet PO DAILYCM [facility] Last Admin: 04/02/17 08:49 Dose: 1 tablet Cholecalciferol (Vitamin D) 1,000 unit PO BIDCM [facility] Last Admin: 04/02/17 08:48 Dose: 1,000 unit Fentanyl (Duragesic) 75 mcg TRANSDERM. Q72H [facility] Last Admin: 04/02/17 10:20 Dose: 75 mcg Gabapentin (Neurontin) 100 mg PO DAILY@0800 [facility] Last Admin: 04/02/17 08:49 Dose: 100 mg Gabapentin (Neurontin) 200 mg PO QHS [facility] Last Admin: 04/01/17 22:15 Dose: 200 mg Lisinopril (Zestril) 10 mg PO DAILY [facility] Last Admin: 04/02/17 08:49 Dose: 10 mg Magnesium Hydroxide (Milk Of Magnesia) 30 ml PO .PRN X 1 PRN PRN Reason: Constipation Last Admin: 03/18/17 22:48 Dose: 30 ml Multivitamins/Minerals (Ocuvite) [facility] Last Admin: 04/02/17 08:49 Dose: 1 tablet Nutritional Formula (Lactose Free) (Ensure Enlive) 120 ml PO 4X/DAY [facility] Last Admin: 04/02/17 08:48 Dose: 120 ml Ondansetron HCl (Zofran Odt) 4 mg PO Q6H PRN PRN PRN Reason: NAUSEA/VOMITING Oxycodone HCl (Oxyir) 5 mg PO Q4H PRN PRN PRN Reason: MODERATE PAIN (4-5/10) Last Admin: 04/02/17 08:48 Dose: 5 mg Pantoprazole Sodium (Protonix) 40 mg PO DAILY [facility] Last Admin: 04/02/17 08:48 Dose: 40 mg Polyethylene Glycol (Miralax) 17 gm PO DAILY [facility] Last Admin: 04/02/17 08:54 Dose: 17 gm Senna/Docusate Sodium (Senokot-S, Hillary-Colace) 2 tablet PO BID [facility] Last Admin: 04/02/17 08:48 Dose: 2 tablet Assessment/Plan Active and Suspected Problems Hyperlipidemia (Acute) Back pain (Acute) Essential hypertension, benign (Acute) S/P laminectomy (Acute) Patient is a 77-year-old lady admitted to the inpatient rehab unit following laminectomy at [facility] on 03/14/16 1. Lumbar spondylolisthesis with lumbar spinal stenosis S/P laminectomy bone graft lumbar spine on 03/14/16 2. Hypertension-blood pressure controlled, home medications continued with dose adjustment as needed 3. Dyslipidemia-patient is on statin therapy, continued at home dose 4. Osteoporosis patient on alendronate Code Visit Inpatient E&M: 23508 Subs Hosp L2
--- NOTE | 2017-04-02 11:03 | PN_ITS ---
Patient Problems: Active and Suspected Problems Hyperlipidemia (Acute) Back pain (Acute) Essential hypertension, benign (Acute) S/P laminectomy (Acute) Subjective: Patient seen complains of some discomfort asking for pain medications prior to her discharge Objective: GENERAL: cooperative HEENT: Clear conjunctiva, NECK; supple, normal thyroid, CHEST: Diminished to auscultation bilaterally, HEART: Regular S1 S2, no audible murmurs ABDOMEN: soft, non-tender, normoactive bowel sounds, RECTAL: deferred EXTREMITIES: No edema, no clubbing, no cyanosis. 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 Vitals/I&O's: Vital Signs Temp Pulse Resp BP Pulse Ox 98.1 F 81 17 111/66 94 04/02/17 09:45 04/02/17 09:45 04/02/17 09:45 04/02/17 09:45 04/02/17 09:45 Oxygen Delivery Method Room Air Weight: 58.4 kg Body Mass Index (BMI) 26.4 Intake and Output for Last 24 Hours 03/31/17 04/01/17 04/02/17 23:59 23:59 23:59 Intake Total 360 / 360 920 / 920 320 / 320 Balance 360 / 360 920 / 920 320 / 320 Current Medications Acetaminophen (Tylenol) 1,000 mg PO Q8 [facility] Last Admin: 04/02/17 06:50 Dose: 1,000 mg Alendronate Sodium (Fosamax) 70 mg PO QWEEK [facility] Last Admin: 03/29/17 05:13 Dose: 70 mg Atenolol (Tenormin (Beta Kailee)) 50 mg PO DAILY [facility] Last Admin: 04/02/17 08:48 Dose: 50 mg Atorvastatin Calcium (Lipitor) 10 mg PO DAILY@2200 [facility] Last Admin: 04/01/17 22:15 Dose: 10 mg Bisacodyl (Dulcolax) 10 mg RECTAL .PRN X 1 PRN PRN Reason: Constipation Last Admin: 03/19/17 20:51 Dose: 10 mg Calcium/Vitamin D (Os-[place] 500mg + D) 1 tablet PO DAILYCM [facility] Last Admin: 04/02/17 08:49 Dose: 1 tablet Cholecalciferol (Vitamin D) 1,000 unit PO BIDCM [facility] Last Admin: 04/02/17 08:48 Dose: 1,000 unit Fentanyl (Duragesic) 75 mcg TRANSDERM. Q72H [facility] Last Admin: 04/02/17 10:20 Dose: 75 mcg Gabapentin (Neurontin) 100 mg PO DAILY@0800 [facility] Last Admin: 04/02/17 08:49 Dose: 100 mg Gabapentin (Neurontin) 200 mg PO QHS [facility] Last Admin: 04/01/17 22:15 Dose: 200 mg Lisinopril (Zestril) 10 mg PO DAILY [facility] Last Admin: 04/02/17 08:49 Dose: 10 mg Magnesium Hydroxide (Milk Of Magnesia) 30 ml PO .PRN X 1 PRN PRN Reason: Constipation Last Admin: 03/18/17 22:48 Dose: 30 ml Multivitamins/Minerals (Ocuvite) [facility] Last Admin: 04/02/17 08:49 Dose: 1 tablet Nutritional Formula (Lactose Free) (Ensure Enlive) 120 ml PO 4X/DAY [facility] Last Admin: 04/02/17 08:48 Dose: 120 ml Ondansetron HCl (Zofran Odt) 4 mg PO Q6H PRN PRN PRN Reason: NAUSEA/VOMITING Oxycodone HCl (Oxyir) 5 mg PO Q4H PRN PRN PRN Reason: MODERATE PAIN (4-5/10) Last Admin: 04/02/17 08:48 Dose: 5 mg Pantoprazole Sodium (Protonix) 40 mg PO DAILY [facility] Last Admin: 04/02/17 08:48 Dose: 40 mg Polyethylene Glycol (Miralax) 17 gm PO DAILY [facility] Last Admin: 04/02/17 08:54 Dose: 17 gm Senna/Docusate Sodium (Senokot-S, Hillary-Colace) 2 tablet PO BID [facility] Last Admin: 04/02/17 08:48 Dose: 2 tablet Assessment/Plan Active and Suspected Problems Hyperlipidemia (Acute) Back pain (Acute) Essential hypertension, benign (Acute) S/P laminectomy (Acute) Patient is a 77-year-old lady admitted to the inpatient rehab unit following laminectomy at [facility] on 03/14/16 1. Lumbar spondylolisthesis with lumbar spinal stenosis S/P laminectomy bone graft lumbar spine on 03/14/16 2. Hypertension-blood pressure controlled, home medications continued with dose adjustment as needed 3. Dyslipidemia-patient is on statin therapy, continued at home dose 4. Osteoporosis patient on alendronate Code Visit Inpatient E&M: 78214 Subs Hosp L2
[2017-04-02 12:30] VITALS: BP 111/66; PULSE 81; RESP 17; TEMP 36.7; O2SAT 94
--- NOTE | 2017-04-02 12:30 | NURSING ---
Patient and given dc instruct and verbalized understanding, patient taught proper use and disposal of duragesic patch and understands her pain medication regimen as prescribed from dr. Eisenberg at this time.
== END 2017-04-02 12:30 | disposition home or self-care (01) | DRG 950 ==
PROVIDERS: Nurse Practitioner Acute Care; Admitting Provider Psychiatry & Neurology Neurology; Family Provider Family Medicine; PCP Family Medicine; Visit Provider Psychiatry & Neurology Neurology
DX: Z48.811 Encounter for surgical aftercare following surgery on the nervous system (principal); M81.0 Age-related osteoporosis without current pathological fracture; E78.5 Hyperlipidemia, unspecified; I10 Essential (primary) hypertension; R73.03 Prediabetes; K59.09 Other constipation; M43.16 Spondylolisthesis, lumbar region; M48.061 Spinal stenosis, lumbar region without neurogenic claudication; G89.18 Other acute postprocedural pain; K21.9 Gastro-esophageal reflux disease without esophagitis; M19.90 Unspecified osteoarthritis, unspecified site; K44.9 Diaphragmatic hernia without obstruction or gangrene; Z79.899 Other long term (current) drug therapy
CPT/HCPCS: 36415; 72148; 80048; 80053; 83735; 84100; 85025; 85027; 97110; 97116; 97162; 97166; 97530; 97535; 97537; 97802

== ENCOUNTER 2017-06-02 10:00 | Outpatient (RCR) | payer MEDICARE, BC, SELFPAY ==
--- NOTE | 2017-04-10 09:41 | HP.PTEVAL ---
Patient's Visit Information RODOLFO FLOYD is a 77 year old F referred to Physical Therapy by Luz Elena Valdes, PATHOLOGY MANAGERTyrelC FARZAD.YAMILE with a diagnosis of S/P L3-S1 laminectomy and fusion. Date of Evaluation: 04/04/17 Physical Therapist: Vinod Dillard - Visit Plan Frequency: 2-3x /Week Duration: 6-8 weeks Plan: Start with HS stretching, supine neutral spine core strengthening, gait progression. May use modalities to manage symptoms. Progress gait and core strengthening complexity as pain and strength improves. - Subjective Subjective: Pt. is here today for her initial evaluation with diagnosis of s/p lumbar laminectomy and fusion of L3-S1. Pt. is a plesant 77 y.o. female who is known to this PT. Pt. did trial conservative PT prior to requiring surgery. Pt. has surgery on 03/14/17. Pt. had a stay on [facility] rehab and reports doing very well. She has been home for 2 days now. Pt. arrives useing FWW and wearing lumbar brace. Pt. reports having increased lumbar spine pain and R anterior thigh pain to 4/10. Pt. reports overall she is better since surgery, but not 100% better. She has been able to walk and tolerate bed mobility and light ADLs without increased symptoms. Pt. denies N/T currently. Pt. is pleased overall with surgery, but understands recovery will take some time. She did report falling out of bed at hospital, but not since. She denies calf pain and no changes in B/B. Pt. was able to recite back to PT all precautions of BLTT. Prior to injury pt. was independent with all activities without use of AD. Pt. did start using AD once back began to hurt. Pt. is hopeful to get back to all PLOF and recreational walking without limitations. - Pain Lumbar spine Pain Intensity (Out of 10): 4 Pain Intensity Range: 0, 6 R anterior thigh Pain Intensity (Out of 10): 4 Pain Intensity Range: 0, 6 - Objective POSTURE: Pt. has rounded shoulders, slight fwrd flexed, but able to correct. Pt. has normal iliasc crest heights. Pt. is able to stand without AD, but reports feeling more comfortable with balance with AD. PALPATION: Pt. has well healing incision along lumbar spine. Pt. has no signs of infection at this point in time. Pt. has negative homans signs. Pt. has mild tenderness to palpation fo R glute and R anterior thigh. ROM: Lumbar spine- DNT this date. RLE- knee with in normal limits; hip- flexion 120deg, abd 45deg, ER 45deg, IR 30deg. LLE- knee with in normal limits; hip- flexion 120deg, abd 45deg, ER 54deg, IR 32deg. Pt. has tight HS bilaterally and tight hip flexors bilaterally. MMT- RLE- ankle- PF 5-/5, DF 5-/5; knee- ext 4/5, flexion 4/5; hip- flexion 4/5, abd 4-/5, ext 4/5. LLE- ankle- 5/5 throughout; knee- ext 4+/5, flexion 4+/5; hip- flexion 4/5, abd 4/5, ext 4/5. Core strength- poor. GAIT: Pt. ambulates with FWW without heavy use. Pt. had slight reduction in step length bilaterally., but does have normal heel strike with initial contact bilaterally. STAIRS: Pt. is able to complete with reciprocal pattern with use of BHR with CGA for safety. Pt. reports mild increase in LB pain with ascending/descending. - Goals Goal 1:: Pt. to be I with all HEP. Goal Time Frame: 4-6 Weeks Goal 2:: Pt. to have increased HS length to 90deg with SLR test bilaterally. Goal Time Frame: 4-6 Weeks Goal 3:: Pt to have increased bilateral LE and core strength increased by 1/2 grade of all effected musculature to reduce stress applied to lumbar spine with all functional mobility. Goal Time Frame: 4-6 Weeks Goal 4:: Pt. to ambulate unlimited distances with AD vs no AD unlimited distances with 0-1/10 pain in lumbar spine allowing for increased community mobility. Goal Time Frame: 6-8 Weeks Goal 5:: Pt. to sleep throughout the night without increase in symptoms. Goal Time Frame: 4-6 Weeks Goal 6:: Pt. to negotiate steps with 1 HR with reciprocal pattern without increase in symptoms. Goal Time Frame: 4-6 Weeks - Rehabilitation Potential Physical Therapy Diagnosis: Pt. has signs and symptoms of core/BL weakness, hypombility, gait difficulty, imbalance and pain s/p laminectomy and fusion of L3-S1. Pt. would benefit from PT to increase BLE strength, TA activitation, gait progression and pain control. Rehabilitation Potential: Good - Anticipated Interventions Patient/Client Instruction: Educate patient on: Condition, Plan of Care, Risk Factors, Benefits of Fitness Program For the Purpose of:: To improve health and function, To foster healthy habits, To improve decision making, To facilitate caregiver knowledge, To improve self management, To prevent re-injury, To improve ability to perform tasks related to life management, To improve tolerance to ADL's Therapeutic Exercise to Include: Strength training, Power training, Endurance training, Balance training, Postural training, Flexibilty training, Gait and locomotor training, Passive ROM, Active ROM, Dynamic Lumbar Stabilization For the Purpose of:: To decrease pain, To increase ROM, To improve nutrient delivery to tissue, To increase oxygenation perfusion, To improve muscle performance and motor function, To improve ability to perform ADL's, To increase tolerance to activity/condition/position, To improve performance and independence with ADL's, To decrease level of supervision to perform tasks, To improve ability of physical actions for home/community/work/leisure, To improve gait and locomotor functions, To improve health of tissue, To decrease soft tissue restriction, To increase flexibility/ROM, To improve endurance, To improve balance, To improve safety with gait IF ES: Yes Cryotherapy (ice pack, ice massage): Yes For the Purpose of:: To decrease pain, To increase ROM, To improve nutrient delivery to tissue, To increase oxygenation perfusion Thank you for the opportunity to evaluate your patient. For Medicare and Medicare HMO plans, please review the plan of care and approve it. It will need to be FAXED BACK to us at [phone] for Medicare purposes. Please let me know if there are questions or concerns regarding this plan of care. Physician Signature: Date:
--- NOTE | 2017-05-05 12:22 | HP.PTREVAL_ITS ---
Luz Elena aVldes, FARZAD-C, TOM It has been my pleasure to treat RODOLFO FLOYD over the last 9 visits for S/P L3 -S1 laminectomy and fusion. Please see the progress note below for an update on the physical therapy plan of care! Subjective: Pt. continues to slowly progress. Pt. reports no new symptoms. She continues to has intermittent increase in R thigh pain, but appears to be progressing. Pt. was able to walk throughout house without AD, but did furniture walk. Pt. reports being HEP compliant. Objective/Function: Pt. tolerated all PT without adverse reaction. Pt. no longer uses abdominal brace. Pt. has some symptoms in her R anterior thigh, but is improving. GAIT: Pt. can ambulate short distance 20-30ft. without AD, but has increased antalgic pattern during R stance phase. Pt. has normal pattern with improved tempo with use of FWW (light use). MMT- core strength- poor+. RLE - ankle- DF 4+/5, PF 5/5; knee ext- 4+/5, flexion 4+/5. hip- flexion 4/5, abd 4 /5, ext 4/5. LLE- ankle 5/5 throughout; knee-5/5 throughout; hip- flexion 4+/5, abd 4/5, ext 4+/5. STAIRS: Pt. is able to negotiate with 2 HR with reciprocal pattern, but is unable to complete with 1 HR with reports of increased pain. Pt. is sleeping throughout the night, her pain is not waking her up. Pt. continues to progress, but slowly. Pt. has anterior thigh pain that has had days of improvement, but also days of baseline symptoms. Overall she reports she is improving, but reports being discouraged at times. Pt. educated on healing process and type of surgery she had that improvement may take some time. Plan Plan: Cont. with POC. Focus on core strengthening and functional monbility. Goals Goal 1:: Pt. to be I with all HEP. Goal Time Frame: 4-6 Weeks Goal Progress: Progressing Goal 2:: Pt. to have increased HS length to 90deg with SLR test bilaterally. Goal Time Frame: 4-6 Weeks Goal Progress: Progressing Goal 3:: Pt to have increased bilateral LE and core strength increased by 1/2 grade of all effected musculature to reduce stress applied to lumbar spine with all functional mobility. Goal Time Frame: 4-6 Weeks Goal Progress: Progressing Goal 4:: Pt. to ambulate unlimited distances with AD vs no AD unlimited distances with 0-1/10 pain in lumbar spine allowing for increased community mobility. Goal Time Frame: 6-8 Weeks Goal Progress: Progressing Goal 5:: Pt. to sleep throughout the night without increase in symptoms. Goal Time Frame: 4-6 Weeks Goal Progress: Goal Met Goal 6:: Pt. to negotiate steps with 1 HR with reciprocal pattern without increase in symptoms. Goal Time Frame: 4-6 Weeks Goal Progress: Progressing Anticipated Interventions Patient/Client Instruction: Educate patient on: Condition, Plan of Care, Risk Factors, Benefits of Fitness Program For the Purpose of:: To improve health and function, To foster healthy habits, To improve decision making, To facilitate caregiver knowledge, To improve self management, To prevent re-injury, To improve ability to perform tasks related to life management, To improve tolerance to ADL's Therapeutic Exercise to Include: Strength training, Power training, Endurance training, Balance training, Postural training, Flexibilty training, Gait and locomotor training, Passive ROM, Active ROM, Dynamic Lumbar Stabilization For the Purpose of:: To decrease pain, To increase ROM, To improve nutrient delivery to tissue, To increase oxygenation perfusion, To improve muscle performance and motor function, To improve ability to perform ADL's, To increase tolerance to activity/condition/position, To improve performance and independence with ADL's, To decrease level of supervision to perform tasks, To improve ability of physical actions for home/community/work/leisure, To improve gait and locomotor functions, To improve health of tissue, To decrease soft tissue restriction, To increase flexibility/ROM, To improve endurance, To improve balance, To improve safety with gait IF ES: Yes Cryotherapy (ice pack, ice massage): Yes For the Purpose of:: To decrease pain, To increase ROM, To improve nutrient delivery to tissue, To increase oxygenation perfusion Please do not hesitate to contact me at [phone] by phone or Fax: if you have questions or concerns regarding this new plan of care! Sincerely, Vinod Dillard
--- NOTE | 2017-06-02 14:02 | HP.PTREVAL_ITS ---
Luz Elena Valdes, FARZAD-C, TOM It has been my pleasure to treat RODOLFO FLOYD over the last 15 visits for S/P L3-S1 laminectomy and fusion. Please see the progress note below for an update on the physical therapy plan of care! Subjective: Pt. reports I am doing a little better. She reports being ~60% better overall. She is now walking with a cane with improved pattern. Pt. continues to complain of increased symptoms with R stance phase of gait. Objective/Function: Pt. is able to ambulate 2000ft in clinic with [facility]. Pt. does report increased R lateral hip and anterior thigh pain and as limiting factor. Pt. is able to negotiate steps with 1 HR with out LOB with reciprocal pattern, but has increased pain during R stance phase. MMT: LLE- ankle 5/5 throughout; knee- ext 5-/5, flexion 5-/5; hip- flexion 4+/5, abd 4/5, ext 4+/5. RLE- ankle 5/5 throughout; knee- ext 4+/5, flexion 4+/5; hip- flexion 4/5, abd 4-/5, ext 4/5. Pt. has progressed, but slowly. Pt. continues to have RLE pain during stance phase. Pt. is progressing with strength as expected. Plan Plan: Pt. to trial PT on own for 2-3 weeks to determine if she can self manage. Pt. to follow up with PT if unable to. Pt. is to follow up with physician in 5 weeks for check up. Goals Goal 1:: Pt. to be I with all HEP. Goal Time Frame: 4-6 Weeks Goal Progress: Goal Met Goal 2:: Pt. to have increased HS length to 90deg with SLR test bilaterally. Goal Time Frame: 4-6 Weeks Goal Progress: Goal Met Goal 3:: Pt to have increased bilateral LE and core strength increased by 1/2 grade of all effected musculature to reduce stress applied to lumbar spine with all functional mobility. Goal Time Frame: 4-6 Weeks Goal Progress: Progressing Goal 4:: Pt. to ambulate unlimited distances with AD vs no AD unlimited distances with 0-1/10 pain in lumbar spine allowing for increased community mobility. Goal Time Frame: 6-8 Weeks Goal Progress: Progressing Goal 5:: Pt. to sleep throughout the night without increase in symptoms. Goal Time Frame: 4-6 Weeks Goal Progress: Progressing Goal 6:: Pt. to negotiate steps with 1 HR with reciprocal pattern without increase in symptoms. Goal Time Frame: 4-6 Weeks Goal Progress: Progressing Anticipated Interventions Patient/Client Instruction: Educate patient on: Condition, Plan of Care, Risk Factors, Benefits of Fitness Program For the Purpose of:: To improve health and function, To foster healthy habits, To improve decision making, To facilitate caregiver knowledge, To improve self management, To prevent re-injury, To improve ability to perform tasks related to life management, To improve tolerance to ADL's Therapeutic Exercise to Include: Strength training, Power training, Endurance training, Balance training, Postural training, Flexibilty training, Gait and locomotor training, Passive ROM, Active ROM, Dynamic Lumbar Stabilization For the Purpose of:: To decrease pain, To increase ROM, To improve nutrient delivery to tissue, To increase oxygenation perfusion, To improve muscle performance and motor function, To improve ability to perform ADL's, To increase tolerance to activity/condition/position, To improve performance and independence with ADL's, To decrease level of supervision to perform tasks, To improve ability of physical actions for home/community/work/leisure, To improve gait and locomotor functions, To improve health of tissue, To decrease soft tissue restriction, To increase flexibility/ROM, To improve endurance, To improve balance, To improve safety with gait IF ES: Yes Cryotherapy (ice pack, ice massage): Yes For the Purpose of:: To decrease pain, To increase ROM, To improve nutrient delivery to tissue, To increase oxygenation perfusion Please do not hesitate to contact me at [phone] by phone or Fax: if you have questions or concerns regarding this new plan of care! Sincerely, Vinod Dillard
--- NOTE | 2017-08-03 20:00 | HP.PT.NRP ---
HP - Discharge Summary (1) - Patient Information RODOLFO FLOYD was seen in my office for initial evaluation on 04/04/17. The following Plan of Care was established for this patient: Initial Frequency: 2-3x /Week Initial Duration: 6-8 weeks - Anticipated Interventions Patient/Client Instruction: Educate patient on: Condition, Plan of Care, Risk Factors, Benefits of Fitness Program For the Purpose of:: To improve health and function, To foster healthy habits, To improve decision making, To facilitate caregiver knowledge, To improve self management, To prevent re-injury, To improve ability to perform tasks related to life management, To improve tolerance to ADL's Therapeutic Exercise to Include: Strength training, Power training, Endurance training, Balance training, Postural training, Flexibilty training, Gait and locomotor training, Passive ROM, Active ROM, Dynamic Lumbar Stabilization For the Purpose of:: To decrease pain, To increase ROM, To improve nutrient delivery to tissue, To increase oxygenation perfusion, To improve muscle performance and motor function, To improve ability to perform ADL's, To increase tolerance to activity/condition/position, To improve performance and independence with ADL's, To decrease level of supervision to perform tasks, To improve ability of physical actions for home/community/work/leisure, To improve gait and locomotor functions, To improve health of tissue, To decrease soft tissue restriction, To increase flexibility/ROM, To improve endurance, To improve balance, To improve safety with gait IF ES: Yes Cryotherapy (ice pack, ice massage): Yes For the Purpose of:: To decrease pain, To increase ROM, To improve nutrient delivery to tissue, To increase oxygenation perfusion This patient was last seen in our office 06/02/17. Pertinent comments regarding their Physical therapy will appear below: Pt. was treated for gait training, BLE strengthening, core strengthening and functional mobility progress S/P L3-S1 fusion. Pt. was progressing with all of the above, but was still having increased pain and R hip weakness. Pt. has not been seen in ~2 months and will be DC from PT at this point in time. At this point I will be discontinuing this patient from physical therapy. I would be happy to see this patient again in the future if found appropriate by the physician. Thank you! Vinod Dillard
== END 2017-06-02 19:00 | disposition home or self-care (01) ==
LOC: PT 10:00
PROVIDERS: Family Provider Family Medicine; PCP Family Medicine; Visit Provider Nurse Practitioner Acute Care
DX: Z98.890 Other specified postprocedural states (principal)
CPT/HCPCS: 97110; 97163

== ENCOUNTER → 2017-08-01 11:53 | Outpatient (CLI) | payer MEDICARE, BC, SELFPAY ==
--- NOTE | 2017-08-01 11:55 | BI_ITS ---
MAMMOGRAPHY - BILATERAL SCREENING REASON FOR EXAM: Female, 77 years old. Routine annual screening examination. PERTINENT HISTORY: NO FAM HX - BILAT ASPIRATIONS TECHNIQUE: Digital bilateral breast cyrus (3D mammographic acquisition) in the CC and MLO projections. 2-D mediolateral oblique (MLO) and craniocaudad (CC) views of both breasts were obtained. CAD: Full Field Digital Mammography with Computer Added Detection was performed. COMPARISON: 01/04/2015 FINDINGS: Breast Composition: The breasts are heterogeneously dense, which may obscure small masses. There are no dominant masses or suspicious calcifications. No other significant abnormalities are identified. BI/SCREENING MAMM (CAD), BILAT IMPRESSION: Stable bilateral screening mammogram. Yearly follow-up mammogram recommended. (A) ASSESSMENT CATEGORY: BIRADS Category 2: Benign. A letter regarding these results will be sent to the patient by the facility within 30 days. Approximately 10% of breast cancers are not detected by mammography. A normal mammogram should not delay biopsy of a clinically suspicious abnormality. [id number] Electronically Signed: Geovanna Loyola MD at 15:24 EDT Tel , Service support ,
== END ==
PROVIDERS: Family Provider Family Medicine; PCP Family Medicine; Visit Provider Obstetrics & Gynecology
DX: Z12.31 Encounter for screening mammogram for malignant neoplasm of breast (principal)
CPT/HCPCS: 77063; 77067

== ENCOUNTER → 2017-09-11 14:30 | Outpatient (CLI) | payer MEDICARE, BC, SELFPAY ==
--- NOTE | 2017-09-11 14:51 | RAD_ITS ---
STUDY: X-RAY - RIGHT KNEE REASON FOR EXAM: Female, 77 years old. Right knee pain TECHNIQUE: 2 view(s) of the knee. COMPARISON: None. FINDINGS: Normal visualized distal femur. Normal visualized proximal tibia and fibula. Normal proximal tibiofibular articulation. Normal medial femorotibial compartment. Normal lateral femorotibial compartment. Normal patellofemoral articulation. The soft tissue structures are unremarkable. RAD/Knee 1 or 2 Views IMPRESSION: Normal x-ray examination of the knee. Electronically Signed: George Cordova DO at 15:21 EDT Tel , Service support ,
--- NOTE | 2017-09-11 14:52 | RAD_ITS ---
STUDY: X-RAY - PELVIS AND RIGHT HIP REASON FOR EXAM: Female, 77 years old. Right hip pain TECHNIQUE: Radiological exam, hip, unilateral, with pelvis when performed; 2 or 3 views. COMPARISON: None. FINDINGS: There is a non-specific bowel gas pattern. Normal visualized soft tissue structures. Postsurgical changes of the lower lumbar spine Normal bilateral iliac wings, sacroiliac joints and visualized sacrum. Normal bilateral superior and inferior pubic rami. Normal pubic symphysis. Normal bilateral ischial tuberosities. 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 Normal acetabulum. There is mild articular joint space narrowing of the hip. RAD/Hip 2-3 Views with Pelvis IMPRESSION: Mild degenerative changes Electronically Signed: George Cordova DO at 15:20 EDT Tel , Service support ,
== END ==
PROVIDERS: Family Provider Family Medicine; PCP Family Medicine; Visit Provider Anesthesiology Pain Medicine
DX: M25.551 Pain in right hip (principal); M25.561 Pain in right knee
CPT/HCPCS: 73502; 73560

== ENCOUNTER → 2017-10-09 15:12 | Outpatient (CLI) | payer MEDICARE, BC, SELFPAY ==
[2017-10-09 17:11] LABS: Amphetamine Urine VISTA NEGATIVE (<1000 ng/mL); Barbiturate Urine VISTA NEGATIVE (< 200 ng/mL); Benzodiazepine Urine VISTA NEGATIVE (< 200 ng/mL); Cocaine Urine VISTA NEGATIVE (< 300 ng/mL); Ecstacy Urine VISTA NEGATIVE (< 500 ng/mL); Methadone Urine VISTA NEGATIVE (< 300 ng/mL); PCP Urine VISTA NEGATIVE (< 25 ng/mL); THC Urine VISTA NEGATIVE (< 50 ng/mL); Vista UDS pH Range 5
== END ==
PROVIDERS: Family Provider Family Medicine; PCP Family Medicine; Visit Provider Anesthesiology Pain Medicine
DX: F11.20 Opioid dependence, uncomplicated (principal)
CPT/HCPCS: 80307

== ENCOUNTER → 2018-09-04 | Outpatient (CLI) | payer MEDICARE, BC, SELFPAY ==
[2018-08-25 11:52] VITALS: BMI 25.8
--- NOTE | 2018-09-04 13:51 | BI_ITS ---
MAMMOGRAPHY - BILATERAL SCREENING REASON FOR EXAM: Female, 78 years old. Routine annual screening examination. PERTINENT HISTORY: Non-contributory. TECHNIQUE: Digital bilateral breast tia (3D mammographic acquisition) in the CC and MLO projections. 2-D mediolateral oblique (MLO) and craniocaudad (CC) views of both breasts were obtained. CAD: Full Field Digital Mammography with Computer Added Detection was performed. COMPARISON: Comparison is made with prior study dated August 01, 2017. FINDINGS: Breast Composition: The breasts are heterogeneously dense, which may obscure small masses. There are no dominant masses or suspicious calcifications. Stable small benign-appearing bilateral axillary lymph nodes. No other significant abnormalities are identified. There has been no significant change since the prior study. BI/SCREEN MAMM (CAD) W/TIA BILAT IMPRESSION: Stable bilateral screening mammogram. Yearly follow-up mammogram recommended. (A) ASSESSMENT CATEGORY: BIRADS Category 2: Benign. A letter regarding these results will be sent to the patient by the facility within 30 days. Approximately 10% of breast cancers are not detected by mammography. A normal mammogram should not delay biopsy of a clinically suspicious abnormality. [id number] Electronically Signed: Colten Melendez, at 15:09 EDT , Service support ,
== END | disposition home or self-care (01) ==
LOC: OPBI 13:42
PROVIDERS: Family Provider Family Medicine; PCP Family Medicine; Referring Provider Obstetrics & Gynecology; Visit Provider Obstetrics & Gynecology
DX: Z12.31 Encounter for screening mammogram for malignant neoplasm of breast (principal)
CPT/HCPCS: 77063; 77067

== ENCOUNTER → 2019-09-07 | Outpatient (CLI) | payer MEDICARE, BC, SELFPAY ==
[2018-08-25 11:52] VITALS: BMI 25.8
[2019-09-01 10:36] VITALS: BMI 25.8
--- NOTE | 2019-09-07 07:17 | BI_ITS ---
MAMMOGRAPHY - BILATERAL SCREENING REASON FOR EXAM: Female, 79 years old. Routine annual screening examination. PERTINENT HISTORY: Aunt with breast cancer. TECHNIQUE: Digital bilateral breast tia (3D mammographic acquisition) in the CC and MLO projections. 2-D mediolateral oblique (MLO) and craniocaudad (CC) views of both breasts were obtained. CAD: Full Field Digital Mammography with Computer Added Detection was performed. COMPARISON: Comparison is made with prior study dated September 04, 2018 and August 01, 2017. FINDINGS: Breast Composition: The breasts are heterogeneously dense, which may obscure small masses. There are no dominant masses or suspicious calcifications. Stable benign appearing bilateral axillary nodes. No other significant abnormalities are identified. There has been no significant change since the prior study. BI/SCREEN MAMM (CAD) W/TIA BILAT IMPRESSION: Stable bilateral screening mammogram. Yearly follow-up mammogram recommended. (A) ASSESSMENT CATEGORY: BIRADS Category 2: Benign. A letter regarding these results will be sent to the patient by the facility within 30 days. Approximately 10% of breast cancers are not detected by mammography. A normal mammogram should not delay biopsy of a clinically suspicious abnormality. [id number] Electronically Signed: Colten Melendez, at 8:31 EDT , Service support ,
== END | disposition home or self-care (01) ==
LOC: OPBI 07:17
PROVIDERS: PCP Family Medicine; Referring Provider Obstetrics & Gynecology; Visit Provider Obstetrics & Gynecology
DX: Z12.31 Encounter for screening mammogram for malignant neoplasm of breast (principal)
CPT/HCPCS: 77063; 77067

== ENCOUNTER → 2020-09-08 12:40 | Outpatient (CLI) | payer MEDICARE, BC, SELFPAY ==
[2019-09-01 10:36] VITALS: BMI 25.8
--- NOTE | 2020-09-08 12:41 | BI_ITS ---
MAMMOGRAPHY - BILATERAL SCREENING REASON FOR EXAM: Female, 80 years old. Routine annual screening examination. PERTINENT HISTORY: Aunt with breast cancer. TECHNIQUE: Digital bilateral breast tia (3D mammographic acquisition) in the CC and MLO projections. 2-D mediolateral oblique (MLO) and craniocaudad (CC) views of both breasts were obtained. CAD: Full Field Digital Mammography with Computer Added Detection was performed. COMPARISON: Comparison is made with prior examination dated 09/07/2019 and 09/04/2018. FINDINGS: Breast Composition: The breasts are heterogeneously dense, which may obscure small masses. There are no dominant masses or suspicious calcifications. Stable benign-appearing bilateral axillary lymph nodes. No other significant abnormalities are identified. There has been no significant change since the prior study. BI/SCRN MAMM (CAD)W/TIA BILAT IMPRESSION: Stable bilateral screening mammogram. Yearly follow-up mammogram recommended. (A) ASSESSMENT CATEGORY: BIRADS Category 2: Benign. A letter regarding these results will be sent to the patient by the facility within 30 days. Approximately 10% of breast cancers are not detected by mammography. A normal mammogram should not delay biopsy of a clinically suspicious abnormality. [id number] Electronically Signed: Colten Melendez MD at 14:25 EDT , Service support ,
== END ==
PROVIDERS: PCP Family Medicine; Referring Provider Obstetrics & Gynecology; Visit Provider Obstetrics & Gynecology
DX: Z12.31 Encounter for screening mammogram for malignant neoplasm of breast (principal)
CPT/HCPCS: 77063; 77067

== ENCOUNTER 2022-11-03 11:09 | Emergency (ER) | payer MEDICARE, BC, SELFPAY ==
[2022-11-03 11:09] VITALS: BP 134/61; PULSE 59; RESP 16; TEMP 36.4; O2SAT 98; BMI 25.0
--- NOTE | 2022-11-03 11:27 | EX.ED.DYSGE1 ---
HPI History of Present Illness Chief Complaint: Palpitations Narrative Narrative: 82-year-old female past medical history of hypertension, used to take atenolol and lisinopril but stopped taking that because of low blood pressure, presents from urgent care for EKG because of low heart rate and irregular heart rhythm. She does not feel any chest pain or shortness of breath, no palpitations, denies other symptoms with the exception of testing positive for COVID at home. She has occasional signs of runny nose and nasal congestion. They went to urgent care to get medications for COVID. It was there that the nurse practitioner noticed a low heart rate and irregular rhythm. Of note, patient does state that she was getting presurgical testing for cataract surgery on Friday of last week, and was told that she has an irregular heart rhythm at that time. EKG had been performed as well. [facility] Medical History Hypertension Osteopenia pre diabetic Home Medications alendronate 70 mg tablet 70 mg PO QWEEK bone health 01/09/17 [History Last Taken Unknown] atenolol 50 mg tablet 50 mg PO DAILY blood pressure 01/09/17 [History Last Taken 01/13/17 06:30] calcium carbonate 600 mg-vitamin D3 5 mcg (200 unit) tablet 1 ea PO DAILY supp 01/09/17 [History Last Taken Unknown] lisinopril 10 mg tablet 10 mg PO DAILY blood pressure 01/09/17 [History Last Taken Unknown] omeprazole 40 mg capsule,delayed release 40 mg PO DAILY acid reflux 01/09/17 [History Last Taken 01/13/17 06:30] cholecalciferol (vitamin D3) 25 mcg (1,000 unit) tablet 1,000 unit PO BID supp 03/18/17 [History Last Taken Unknown] acetaminophen 500 mg tablet 1,000 mg (2 x 500 mg) PO Q8 04/02/17 [Rx Last Taken Unknown] aspirin 81 mg chewable tablet 81 mg PO QDAY 07/10/17 [History Last Taken Unknown] docusate sodium 100 mg capsule (Colace) 100 mg PO DAILY 08/25/18 [History Last Taken Unknown] lovastatin 40 mg tablet 40 mg PO BID cholesterol 09/01/19 [History Last Taken Unknown] meloxicam 7.5 mg tablet 7.5 mg PO DAILY 09/01/19 [History Last Taken Unknown] oxybutynin chloride 5 mg tablet,extended release 24 hr 5 mg PO QDAY #90 tabs 09/01/19 [Rx Last Taken Unknown] Allergy/AdvReac Type Severity Reaction Status Date / Time ciprofloxacin [From Cipro] Allergy Unknown Verified 09/01/19 10:35 ciprofloxacin HCl Allergy Unknown Verified 09/01/19 10:35 [From Cipro] codeine AdvReac Other Verified 09/01/19 10:35 Family History Mother Hypertension Father Cancer prostate Surgical History H/O right knee surgery H/O tubal ligation History of back surgery History of left knee replacement s/p hyperparathyroid gland removal Status post hysteroscopy Social History Smoking Status: Never smoker alcohol intake: current details: social substance use type: does not use caffeine: Yes what type of physical activity do you participate in: walking seatbelt use: always do you feel safe at home: Yes additional social history: [place]- Retired Patient is retired ROS ROS ED ROS Narrative Constitutional: No fever, no chills. HEENT: No sore throat. No neck pain. No loss of vision. Rhinorrhea and nasal congestion with positive COVID test. Cardiovascular: No chest pain. No palpitations. No pedal edema. Respiratory: No cough, no shortness of breath. Abdominal: No abdominal pain. No nausea. No vomiting. Genitourinary: No dysuria. No hematuria. Musculoskeletal: No myalgias. No arthralgias. Neurologic: No headaches. No dizziness. No lightheadedness. Skin: No rash. No change in color. Psychiatric: No depression. No anxiety. EXAM Physical Exam Narrative Exam Narrative: Afebrile. Vital signs noted. HEENT: Normocephalic. Atraumatic. PERRL, EOMI. Neck soft and supple. No point tenderness or step off. Cardiovascular: Regular rate and rhythm with occasional extrasystoles. No murmurs, rubs, or gallops appreciated. Respiratory: No tachypnea. Lungs clear to auscultation bilaterally. Gastrointestinal: Abdomen soft, nontender, with normoactive bowel sounds. No rebound or guarding. Neurological: Awake. Alert. Nonfocal, nonlateralizing. Skin: No rash. Normal color. No pallor. Musculoskeletal: No pedal edema. Full range of motion extremities. Const Vital Signs: 11/03/22 11:09 11/03/22 11:17 11/03/22 11:17 Temperature 97.5 F L Temperature Source Temporal Pulse Rate 59 L Respiratory Rate 16 Respiratory Effort Normal Non-Labored Normal Non-Labored Respiratory Pattern Normal Blood Pressure 134/61 H Blood Pressure Mean 85 Pulse Ox 98 Oxygen Delivery Method Room Air MDM MDM MDM Narrative Medical decision making narrative: Patient is asymptomatic with her reported bradycardia and irregular rhythm. Upon triage, she was mildly bradycardic at 59. She states in the past she has noticed on her home blood pressure cuff that she might have a heart rate in the 40s, but she states she drinks water, and it comes back up. EKG was obtained which demonstrates normal sinus rhythm at 88 bpm with frequent PVCs, but no bigeminy. No acute ST changes. No STEMI. I do feel that with her 1 cup of coffee and her PVCs that she does not require admission or further laboratory testing or imaging. She was told that she may need to wear a Holter monitor, and follow-up with cardiology. I feel she can be discharged safely home with follow-up and to continue her medications for her COVID-19. Return instructions to the emergency department were reviewed. Disposition is discharged home in stable condition. History & Record Review Discussion w/independent historian: Patient and Family Additional record(s) reviewed:: Prior ED visit (No visits since 2013.) Discharge Plan Triage Chief Complaint: Palpitations ED Provider: Walker Gallegos Dx/Rx/DC Orders Clinical Impression: Bradycardia, PVCs (premature ventricular contractions) Instructions: PVCs, ED About Arrhythmias, ED Bradycardia Prescriptions: No Action aspirin 81 mg tablet,chewable 81 mg PO QDAY docusate sodium [Colace] 100 mg capsule 100 mg PO DAILY meloxicam 7.5 mg tablet 7.5 mg PO DAILY oxybutynin chloride 5 mg tablet extended release 24hr 5 mg PO QDAY Qty: 90 12RF alendronate 70 MG tablet 70 mg PO QWEEK Patient Comments: bone health calcium carbonate-vitamin D3 1 EACH tablet 1 ea PO DAILY Patient Comments: SUPPLEMENT omeprazole 40 MG capsule,delayed release(DR/EC) 40 mg PO DAILY Patient Comments: REFLUX lisinopril 10 MG tablet 10 mg PO DAILY Patient Comments: BP atenolol 50 MG tablet 50 mg PO DAILY Patient Comments: BP lovastatin 40 mg tablet 40 mg PO BID Patient Comments: CHOLESTEROL cholecalciferol (vitamin D3) 1,000 UNIT tablet 1,000 unit PO BID Patient Comments: supplement acetaminophen 500 MG tablet 1,000 mg PO Q8 0RF Primary Care Provider: Kolby Moncada Referrals: Kolby Moncada MD [Primary Care Provider] - 3-5 Days Activity Restrictions/Additional Instructions: Follow-up with Dr. Moncada within the next week. You may need to wear a Holter monitor. Additionally, you may need to follow-up with cardiology regarding your intermittent bradycardia/low heart rate. Disposition Disposition: Home, Self Care
== END 2022-11-03 11:59 | disposition home or self-care (01) ==
LOC: ED 11:50
PROVIDERS: Emergency Provider Emergency Medicine; PCP Family Medicine; Visit Provider Emergency Medicine
DX: R00.1 Bradycardia, unspecified (principal); I49.3 Ventricular premature depolarization
CPT/HCPCS: 93005; 99283